=== PATIENT | female | born 1990 | race Caucasian/White ===

== ENCOUNTER 2016-06-29 22:11 | Emergency (ER) | payer OTHER ==
[2016-06-29] MEDS ORDERED: HYDROCODONE/ACETAMINOPHEN 5-325 MG 6 TAB/DSPK PO PRN (23:53)
[2016-06-29] MEDS ORDERED: NAPROXEN 250 MG TABLET PO ONE (23:54)
--- NOTE | 2016-06-29 23:56 | ER Document Report ---
ED General - General Chief Complaint: Wrist Pain Stated Complaint: WRIST PAIN/NUMBNESS Notes: Patient is a 26-year-old female without past medical history who presents with 2 days of right shoulder pain with pain rating down the arm and into her hand. Pain is described as a burning, stabbing, severe pain. No known injury. Denies a history of similar symptoms in the past. Nothing improves or worsens or symptoms. She has not seen her primary care physician regarding today's concerns. States although her hand feels "asleep" she continues to use it without difficulty. TRAVEL OUTSIDE OF THE [place] IN LAST 30 DAYS: No - Related Data Allergies/Adverse Reactions: azithromycin Allergy (Verified 06/29/16 22:25) metoclopramide [From Reglan] Allergy (Verified 06/29/16 22:25) morphine Allergy (Verified 06/29/16 22:25) Past Medical History - General Information source: Patient - Social History Smoking Status: Never Smoker Frequency of alcohol use: None Drug Abuse: None Lives with: Spouse/Significant other Family History: Reviewed & Not Pertinent Patient has suicidal ideation: No Patient has homicidal ideation: No Neurological Medical History: Reports: Hx Migraine Renal/ Medical History: Denies: Hx Peritoneal Dialysis Psychiatric Medical History: Reports: Hx Depression Past Surgical History: Reports: Hx Cholecystectomy, Hx Tubal Ligation - Immunizations Hx Diphtheria, Pertussis, Tetanus Vaccination: Yes Review of Systems - Review of Systems Notes: Constitutional: Negative for fever. HENT: Negative for sore throat. Eyes: Negative for visual changes. Cardiovascular: Negative for chest pain. Respiratory: Negative for shortness of breath. Gastrointestinal: Negative for abdominal pain, vomiting or diarrhea. Genitourinary: Negative for dysuria. Musculoskeletal: Positive for right arm pain Skin: Negative for rash. Neurological: Negative for headaches, weakness or numbness. 10 point ROS negative except as marked above and in HPI. Physical Exam - Vital signs Vitals: Temp Pulse Resp BP Pulse Ox 98.1 F 99 16 130/98 H 100 06/29/16 22:25 06/29/16 22:25 06/29/16 22:25 06/29/16 22:25 06/29/16 22:25 Interpretation: Normal Notes: PHYSICAL EXAMINATION: GENERAL: Well-appearing, well-nourished and in no acute distress. HEAD: Atraumatic, normocephalic. EYES: Pupils equal round and reactive to light, extraocular movements intact, sclera anicteric, conjunctiva are normal. ENT: nares patent, oropharynx clear without exudates. Moist mucous membranes. NECK: Normal range of motion, supple without lymphadenopathy LUNGS: Breath sounds clear to auscultation bilaterally and equal. No wheezes rales or rhonchi. HEART: Regular rate and rhythm without murmurs ABDOMEN: Soft, nontender, normoactive bowel sounds. No guarding, no rebound. No masses appreciated. EXTREMITIES: Normal range of motion, no pitting or edema. No cyanosis. RMU motor and sensory functions intact in the bilateral upper extremities NEUROLOGICAL: Face symmetric. Tongue protrudes midline. Extraocular motions intact. Pupils are 2 mm and equally reactive. Normal speech, normal gait. 5 out of 5 strength in both the distal and proximal upper and lower extremities bilaterally. Sensation is grossly intact throughout. Finger to nose testing normal. Pronator drift normal. PSYCH: Normal mood, normal affect. SKIN: Warm, Dry, normal turgor, no rashes or lesions noted. Course - Re-evaluation Re-evalutation: 06/29/16 23:54 Presentation is consistent with a C6 VII nerve root compression on the right. Patient has paresthesias and pain in her shoulder radiating down to her hand. She has no focal neurologic deficit, full RMU motor and sensory strength is intact. Positive Spurling test. I do not suspect an acute CVA, cervical spine injury, or brachial plexus injury based on exam or history. Patient will be started on to anti-inflammatories. Have instructed her follow closely with her primary care physician.At this time will discharge with return precautions and follow-up recommendations. Verbal discharge instructions given a the bedside and opportunity for questions given. Medication warnings reviewed. Patient is in agreement with this plan and has verbalized understanding of return precautions and the need for primary care follow-up in the next 24-72 hours. - Vital Signs Vital signs: Temp Pulse Resp BP Pulse Ox 98.1 F 94 16 128/74 H 100 06/29/16 22:25 06/30/16 00:23 06/30/16 00:23 06/30/16 00:23 06/30/16 00:23 Discharge - Discharge Clinical Impression: Cervical nerve root impingement Condition: Good Disposition: HOME, SELF-CARE Additional Instructions: Your symptoms are likely due to impingement of one of the peripheral nerves in your cervical spine. This can take months to completely resolve but does eventually get better. You need to take the anti-inflammatories that were prescribed called naproxen 500 mg twice daily. This will help with pain and reduce the inflammation that is causing your discomfort. You have been given a small amount a stronger pain medication called Minda to take at night for sleep. Please return if you have worsening of her pain, weakness, numbness, or any other new symptoms that are worrisome to you. Please follow closely with your primary care doctor in the next 1-2 days. Prescriptions: Naproxen 500 mg PO BID #60 tablet Forms: Return to Work
[2016-06-30 00:33] VITALS: BP 128/74
== END 2016-06-30 00:23 | disposition home or self-care (01) ==
LOC: ER 22:11
DX: M25.531 Pain in right wrist (principal); R20.0 Anesthesia of skin; Z88.3 Allergy status to other anti-infective agents
CPT/HCPCS: 99283

== ENCOUNTER 2016-09-24 10:03 | Emergency (ER) | payer BC, OTHER ==
[2016-09-24] MEDS ORDERED: NORMAL SALINE 1000 ML 1,000 ML IV PRN (10:16)
[2016-09-24] MEDS ORDERED: ONDANSETRON HCL INJ/PF 4 MG/2 ML SDV IV ONE (10:17)
--- NOTE | 2016-09-24 10:19 | ER Document Report ---
Doctor's Note Notes: 09/24/16 10:18 This is a 26-year-old female with a history of herniated disks that presents to the emergency room low back pain, nausea and vomiting. Patient states that the back pain started at work yesterday. She denies any urinary or fecal incontinence. She denies any numbness to the lower extremities. She states that she had vomiting 4 AM this morning. Allergies: Reglan, morphine and azithromycin Past surgical history: Tonsils, cholecystectomy, bilateral tubal ligation
[2016-09-24 10:51] LABS: ABSOLUTE EOSINOPHILS # (AUTO) 0.1 10^3/uL (0.0-0.6); ABSOLUTE MONOCYTES (AUTO) 0.7 10^3/uL (0.1-1.4); ABSOLUTE NEUT (AUTO) 7.7 10^3/uL (1.7-8.2); BASOPHILS % (AUTO) 0.3 % (0-2); EOSINOPHILS % (AUTO) 1.5 % (0-6); HEMATOCRIT 44.6 % (36.0-47.0); HEMOGLOBIN 15.3 g/dL (12.0-15.5); HGB HCT DIFFERENCE 1.3; LYMPHOCYTES % (AUTO) 10.3 % (13-45); MEAN CORPUSCULAR HEMOGLOBIN 28.9 pg (27.0-33.4); MEAN CORPUSCULAR HGB CONC 34.2 g/dL (32.0-36.0); MEAN CORPUSCULAR VOLUME 84 fl (80-97); MONOCYTES % (AUTO) 7.3 % (3-13); RED BLOOD COUNT 5.29 10^6/uL (3.72-5.28); RED CELL DISTRIBUTION WIDTH 13.4 % (11.5-14.0); SEGMENTED NEUTROPHILS % (AUTO) 80.6 % (42-78); WHITE BLOOD COUNT 9.6 10^3/uL (4.0-10.5)
[2016-09-24] MEDS ORDERED: MAG HYDROX/AL HYDROX/SIMETH SUSP 30 ML UDCUP PO ONE (11:16)
[2016-09-24] MEDS ORDERED: LIDOCAINE 2% VISCOUS SOLN 20 ML UDCUP PO ONE (11:16)
--- NOTE | 2016-09-24 11:19 | ER Document Report ---
ED General - General Chief Complaint: Abdominal Pain Stated Complaint: BACK PAIN AND VOMITING Mode of Arrival: Ambulatory Information source: Patient TRAVEL OUTSIDE OF THE [place] IN LAST 30 DAYS: No - Related Data Allergies/Adverse Reactions: azithromycin Allergy (Verified 09/24/16 10:10) metoclopramide [From Reglan] Allergy (Verified 09/24/16 10:10) morphine Allergy (Verified 09/24/16 10:10) Past Medical History - Social History Smoking Status: Never Smoker Frequency of alcohol use: None Drug Abuse: None Family History: Reviewed & Not Pertinent Patient has suicidal ideation: No Patient has homicidal ideation: No Neurological Medical History: Reports: Hx Migraine Renal/ Medical History: Denies: Hx Peritoneal Dialysis Psychiatric Medical History: Reports: Hx Depression Past Surgical History: Reports: Hx Cholecystectomy, Hx Tonsillectomy, Hx Tubal Ligation - Immunizations Hx Diphtheria, Pertussis, Tetanus Vaccination: Yes Physical Exam - Vital signs Vitals: Temp Pulse Resp BP Pulse Ox 98.3 F 103 H 20 123/91 H 99 09/24/16 10:08 09/24/16 10:08 09/24/16 10:08 09/24/16 10:08 09/24/16 10:08 Course - Vital Signs Vital signs: Temp Pulse Resp BP Pulse Ox 98.3 F 103 H 20 123/91 H 99 09/24/16 10:08 09/24/16 10:08 09/24/16 10:08 09/24/16 10:08 09/24/16 10:08 - Laboratory Result Diagrams: 09/24/16 10:27 09/24/16 10:27 Laboratory results interpreted by me: 09/24/16 09/24/16 10:27 11:11 RBC 5.29 H Seg Neutrophils % 80.6 H Lymphocytes % 10.3 L Urine Ketones TRACE H Urine Urobilinogen 2.0 H Ur Leukocyte Esterase SMALL H Discharge - Discharge Clinical Impression: GERD (gastroesophageal reflux disease) Qualifiers: Esophagitis presence: with esophagitis Qualified Code(s): K21.0 - Gastro- esophageal reflux disease with esophagitis Abdominal pain Qualifiers: Abdominal location: left upper quadrant Qualified Code(s): R10.12 - Left upper quadrant pain Condition: Stable Disposition: HOME, SELF-CARE Instructions: Abdominal Pain ([facility]) Prescriptions: Famotidine [Pepcid 20 mg Tablet] 20 mg PO DAILY #30 tablet Referrals: GREGORIO ANDRADE MD [ACTIVE STAFF] - Follow up in 3-5 days
[2016-09-24 11:21] LABS: ALANINE AMINOTRANSFERASE 30 U/L (9-52); ALBUMIN 4.2 g/dL (3.5-5.0); ALKALINE PHOSPHATASE 86 U/L (38-126); ANION GAP 12 (5-19); ASPARTATE AMINO TRANSFERASE 18 U/L (14-36); BILIRUBIN,DIRECT 0.3 mg/dL (0.0-0.4); BILIRUBIN,TOTAL 1.3 mg/dL (0.2-1.3); BLOOD UREA NITROGEN 11 mg/dL (7-20); CALCIUM 9.4 mg/dL (8.4-10.2); CARBON DIOXIDE 24 mmol/L (22-30); CHLORIDE 104 mmol/L (98-107); CREATININE RESULT 0.62 mg/dL (0.52-1.25); GLUCOSE 95 mg/dL (75-110); POTASSIUM 4.2 mmol/L (3.6-5.0); SODIUM 140.4 mmol/L (137-145); TOTAL PROTEIN 7.3 g/dL (6.3-8.2)
[2016-09-24 11:51] LABS: APPEARANCE,URINE SLIGHTLY-CLOUDY; BILIRUBIN,URINE NEGATIVE (NEGATIVE); GLUCOSE, URINE NEGATIVE (NEGATIVE); KETONES,URINE TRACE mg/dL (NEGATIVE); LEUKOCYTE ESTERASE,URINE SMALL (NEGATIVE); NITRITE,URINE NEGATIVE (NEGATIVE); PROTEIN,URINE NEGATIVE (NEGATIVE); URINE SPECIFIC GRAVITY 1.029
[2016-09-24 12:08] VITALS: BP 130/80
== END 2016-09-24 12:10 | disposition home or self-care (01) ==
LOC: ER 10:03
DX: K21.0 Gastro-esophageal reflux disease with esophagitis (principal); R10.12 Left upper quadrant pain; Z88.1 Allergy status to other antibiotic agents; Z88.8 Allergy status to other drugs, medicaments and biological substances; Z88.5 Allergy status to narcotic agent
CPT/HCPCS: 99284; 96361; 96374; 36415; 84702; 83690; 85025; 80053; 81001; J3490; J2405; J7030

== ENCOUNTER 2016-10-29 19:14 | Emergency (ER) | payer BC ==
--- NOTE | 2016-10-29 20:27 | ER Document Report ---
HPI - HPI Patient complains to provider of: Right hip pain for 3-4 days Onset: Other - 3-4 days Onset/Duration: Gradual Quality of pain: Achy Pain Level: 3 Context: 26-year-old obese female complaining of right hip pain for 3-4 days. She does not remember doing anything to invoke the pain. There is no radiculopathy. No low back pain no fever or chills. No history of hip dysplasia. Associated Symptoms: None Exacerbated by: Walking Relieved by: Denies - ROS ROS below otherwise negative: Yes Systems Reviewed and Negative: Yes All other systems reviewed and negative - REPRODUCTIVE LMP: 10/22/16 Reproductive: DENIES: : - DERM Skin Color: Normal, [place] Past Medical History - General Information source: Patient - Social History Smoking Status: Unknown if Ever Smoked Frequency of alcohol use: None Drug Abuse: None Lives with: Family Family History: Reviewed & Not Pertinent Patient has suicidal ideation: No Patient has homicidal ideation: No Neurological Medical History: Reports: Hx Migraine Renal/ Medical History: Denies: Hx Peritoneal Dialysis Psychiatric Medical History: Reports: Hx Depression Past Surgical History: Reports: Hx Cholecystectomy, Hx Tonsillectomy, Hx Tubal Ligation - Immunizations Hx Diphtheria, Pertussis, Tetanus Vaccination: Yes Vertical Provider Document - CONSTITUTIONAL Agree With Documented VS: Yes Exam Limitations: No Limitations General Appearance: No Apparent Distress - INFECTION CONTROL TRAVEL OUTSIDE OF THE [place] IN LAST 30 DAYS: No - HEENT HEENT: Normocephalic - NECK Neck: Supple - RESPIRATORY Respiratory: Breath Sounds Normal, No Respiratory Distress O2 Sat by Pulse Oximetry: 99 - CARDIOVASCULAR Cardiovascular: Regular Rate, Regular Rhythm - GI/ABDOMEN Gastrointestinal: Abdomen Soft, Abdomen Non-Tender - BACK Back: Normal Inspection - Nontender - MUSCULOSKELETAL/EXTREMETIES Musculoskeletal/Extremeties: MAEW, FROM, Tender - anterior hip muscles, no josemanuel tenderness, no pain with internal and external rotation of the hip - NEURO Level of Consciousness: Awake, Alert, Appropriate Motor/Sensory: No Motor Deficit, No Sensory Deficit Course - Vital Signs Vital signs: Temp Pulse Resp BP Pulse Ox 97.6 F 89 16 122/87 H 99 10/29/16 19:21 10/29/16 19:21 10/29/16 19:21 10/29/16 19:21 10/29/16 19:21 Discharge - Discharge Clinical Impression: Strain of right hip Qualifiers: Encounter type: initial encounter Qualified Code(s): S76.011A - Strain of muscle, fascia and tendon of right hip, initial encounter Condition: Good Disposition: HOME, SELF-CARE Instructions: Muscle Strain ([facility]), Warm Packs ([facility]), Use of [id number]-[place]oom Ibuprofen ([facility]), Acetaminophen, Ultram ([facility]) Additional Instructions: see the orthopedic doctor if persists copy of radiology negative interpretation of the xray to er if worse crutches to rest the right hip Please complete the patient satisfaction survey if you get one, and return it.. If you do not receive a survey, then you can go to the [facility] website, [email or web address] and place your comments about your very good care. Thank you very much. It was a pleasure being your medical provider today. Prescriptions: Tramadol HCl [Ultram 50 mg Tablet] 50 mg PO ASDIR PRN #20 tablet PRN Reason: Forms: Return to Work Referrals: MARGOT STEPHENS, [ACTIVE STAFF] - Follow up as needed
[2016-10-29] MEDS ORDERED: ACETAMINOPHEN 325 MG TABLET PO ONE (20:36)
[2016-10-29] MEDS ORDERED: IBUPROFEN 800 MG TABLET PO ONE (20:36)
--- NOTE | 2016-10-29 21:25 | RADIOLOGY REPORT (SQ) ---
EXAM DESCRIPTION: HIP RIGHT AP/LATERAL COMPLETED DATE/TIME: 10/29/2016 9:17 pm REASON FOR STUDY: pin in hip joint COMPARISON: None. NUMBER OF VIEWS: Two views right hip. LIMITATIONS: None. FINDINGS: There is no acute or significant bone, joint or soft tissue abnormality. OTHER: Normal bone density. IMPRESSION: NORMAL STUDY. TECHNICAL DOCUMENTATION: JOB ID: [id number]
[2016-10-29] MEDS ORDERED: TRAMADOL HCL 50 MG TABLET PO ONE (21:56)
[2016-10-29 22:41] VITALS: BP 129/89
== END 2016-10-29 22:41 | disposition home or self-care (01) ==
LOC: ER 19:14
DX: S76.011A Strain of muscle, fascia and tendon of right hip, initial encounter (principal); M25.511 Pain in right shoulder; X58.XXXA Exposure to other specified factors, initial encounter
CPT/HCPCS: 99283

== ENCOUNTER 2017-05-08 18:57 | Emergency (ER) | payer SELFPAY ==
--- NOTE | 2017-05-08 20:11 | ER Document Report ---
ED ENT - General Chief Complaint: Ear Pain Stated Complaint: FEVER,EAR PAIN Time Seen by Provider: 05/08/17 19:54 Mode of Arrival: Ambulatory Information source: Patient Notes: 26-year-old female presents to ED for cough cold congestion body aches and chills for the last 2 days. She states she started out with a right ear pain 3 days ago. States yesterday her temperature was 100.1. TRAVEL OUTSIDE OF THE [place] IN LAST 30 DAYS: No - HPI Patient complains to provider of: Nose problem, Throat problem Onset: Other Onset/Duration: Intermittent - 3 days Quality of pain: Other - Sore throat Severity: Moderate Pain Level: 3 Context: Recent Illness Location of pain: Nose, Sinus, Throat Associated symptoms: Ear pain, Runny nose, Sinus drainage, Sore throat Similar symptoms previously: Yes Recently seen / treated by doctor: No - Related Data Allergies/Adverse Reactions: azithromycin Allergy (Verified 05/08/17 18:58) metoclopramide [From Reglan] Allergy (Verified 05/08/17 18:58) morphine Allergy (Verified 05/08/17 18:58) Past Medical History - General Information source: Patient - Social History Smoking Status: Former Smoker Cigarette use (# per day): No Chew tobacco use (# tins/day): No Smoking Education Provided: No Frequency of alcohol use: None Drug Abuse: None Lives with: Family Family History: Reviewed & Not Pertinent Patient has suicidal ideation: No Patient has homicidal ideation: No - Past Medical History Cardiac Medical History: Reports: Hx Hypertension Pulmonary Medical History: Reports: None EENT Medical History: Reports: None Neurological Medical History: Reports: Hx Migraine Endocrine Medical History: Reports: None Renal/ Medical History: Reports: None Malignancy Medical History: Reports: None GI Medical History: Reports: None Musculoskeltal Medical History: Reports None Skin Medical History: Reports None Psychiatric Medical History: Reports: Hx Depression Traumatic Medical History: Reports: None Infectious Medical History: Reports: None Past Surgical History: Reports: Hx Cholecystectomy, Hx Tonsillectomy, Hx Tubal Ligation - Immunizations Hx Diphtheria, Pertussis, Tetanus Vaccination: Yes Review of Systems - Review of Systems Constitutional: Chills, Fever, Recent illness EENT: Ear pain, Nose discharge, Sinus discharge Cardiovascular: No symptoms reported Respiratory: No symptoms reported Gastrointestinal: No symptoms reported Genitourinary: No symptoms reported Female Genitourinary: No symptoms reported Musculoskeletal: No symptoms reported Skin: No symptoms reported Hematologic/Lymphatic: No symptoms reported Neurological/Psychological: No symptoms reported -: Yes All other systems reviewed and negative Physical Exam - Vital signs Vitals: Temp Pulse Resp BP Pulse Ox 99.2 F 121 H 20 128/89 H 97 05/08/17 19:30 05/08/17 19:30 05/08/17 19:30 05/08/17 19:30 05/08/17 19:30 Interpretation: Tachycardic - 108 - General General appearance: Appears well, Alert - HEENT Head: Normocephalic, Atraumatic Eyes: Normal Pupils: PERRL Ears: Normal External canal: Normal Tympanic membrane: Bulging, Injected, Loss of landmarks Sinus: Normal Nasal: Purulent discharge, Swelling Mouth/Lips: Normal Mucous membranes: Normal Pharynx: Post nasal drainage Neck: Anterior cervical chain - Respiratory Respiratory status: No respiratory distress Chest status: Nontender Breath sounds: Normal Chest palpation: Normal - Cardiovascular Rhythm: Regular Heart sounds: Normal auscultation Murmur: No - Abdominal Inspection: Normal Distension: No distension Bowel sounds: Normal Tenderness: Nontender Organomegaly: No organomegaly - Back Back: Normal, Nontender - Extremities General upper extremity: Normal inspection, Nontender, Normal color, Normal ROM , Normal temperature General lower extremity: Normal inspection, Nontender, Normal color, Normal ROM , Normal temperature, Normal weight bearing. No: Dell's sign - Neurological Neuro grossly intact: Yes Cognition: Normal Orientation: AAOx4 Reba Coma Scale Eye Opening: Spontaneous Reba Coma Scale Verbal: Oriented [place] Coma Scale Motor: Obeys Commands [place] Coma Scale Total: 15 Speech: Normal Motor strength normal: LUE, RUE, LLE, RLE Sensory: Normal - Psychological Associated symptoms: Normal affect, Normal mood - Skin Skin Temperature: Warm Skin Moisture: Dry Skin Color: Normal Course - Re-evaluation Re-evalutation: 05/08/17 20:38 Patient encouraged to increase her p.o. fluids. Patient started on amoxicillin for her otitis media on the right. Patient also has a cold cough congestion instructed to follow-up with her primary doctor. - Vital Signs Vital signs: Temp Pulse Resp BP Pulse Ox 99.1 F 100 18 127/85 H 99 05/08/17 20:19 05/08/17 20:19 05/08/17 20:19 05/08/17 20:19 05/08/17 20:19 Discharge - Discharge Clinical Impression: Otitis media Qualifiers: Otitis media type: unspecified Laterality: right Qualified Code(s): H66.91 - Otitis media, unspecified, right ear URI (upper respiratory infection) Qualifiers: URI type: unspecified URI Qualified Code(s): J06.9 - Acute upper respiratory infection, unspecified Condition: Stable Disposition: HOME, SELF-CARE Additional Instructions: OTITIS MEDIA: You have a middle ear infection (otitis media). This is usually a complication of a cold or sore throat. The middle ear cavity becomes filled with infection. Pressure and stretching of the ear drum cause pain. Antibiotics are required. A 10 day course is usually prescribed. A decongestant may be recommended if you have a "runny nose." You may need anesthetic drops or other pain medication. A follow-up exam may be recommended to make sure the infection has completely cleared. If the ear begins to drain, it means the ear drum has ruptured. This will usually heal spontaneously. However, it means you should keep the ear dry until re-examined by a doctor. Call the physician or return for examination at once if there is severe headache, stiff neck, confusion, increasing fever, or dizziness. You should improve significantly within two days. If you're not better, call the doctor. AMOXICILLIN: Amoxicillin is a member of the penicillin family. It covers the germs likely to cause ear, bronchial, and urinary infections better than plain penicillin. Amoxicillin can be taken without regard to meals. Nausea after taking the medication is rare, but can occur. Diarrhea can occur, particularly in small children. Vaginal yeast infections and oral thrush in infants are also common. Contact your physician if these problems occur. Allergy to penicillins is common. If you have had an allergic reaction to any drug of the penicillin family, you should never take any other penicillin. Notify your doctor at once if you develop hives, itching, swelling, faintness, or shortness of breath. Less serious side effects can include nausea or diarrhea. USE OF ACETAMINOPHEN (Tylenol): Acetaminophen may be taken for pain relief or fever control. It's much safer than aspirin, offering a wider range of "safe" dosages. It is safe during . Some brand names are Tylenol, Panadol, Datril, Anacin 3, Tempra, and Liquiprin. Acetaminophen can be repeated every four hours. The following are maximum recommended dosages: WEIGHT Dose Drops Elixir Chewable( 80mg) (LBS.) drprs=droppers tsp=teaspoon 6 40 mg 0.4 ml (1/2) 6-11 80 mg 0.8 ml (full) tsp 1 tab 12-16 120 mg 1 1/2 drprs 3/4 tsp 1 1/2 tabs 17-23 160 mg 2 drprs 1 tsp 2 tabs 24-30 240 mg 3 drprs 1 1/2 tsp 3 tabs 30-35 320 mg 2 tsp 4 tabs 36-41 360 mg 2 1/4 tsp 4 1/2 tabs 42-47 400 mg 2 1/2 tsp 5 tabs 48-53 480 mg 3 tsp 6 tabs 54-59 520 mg 3 1/4 tsp 6 1/2 tabs 60-64 560 mg 3 1/2 tsp 7 tabs 65-70 600 mg 3 3/4 tsp 7 1/2 tabs 71-76 640 mg 4 tsp 8 tabs 77-82 720 mg 4 1/2 tsp 9 tabs 83-88 800 mg 5 tsp 10 tabs >89 pounds or adults 650 mg to 900 mg Acetaminophen can be repeated every four hours. Maximum dose not to exceed 4000 mg a day. These maximum recommended dosages are slightly higher than the dosages written on the product container, but these dosages are very safe and below the toxic dosage for acetaminophen. FOLLOW-UP CARE: If you have been referred to a physician for follow-up care, call the physician s office for an appointment as you were instructed or within the next two days. If you experience worsening or a significant change in your symptoms, notify the physician immediately or return to the Emergency Department at any time for re-evaluation. Prescriptions: Ibuprofen 800 mg PO Q8HP PRN #14 tablet PRN Reason: Amoxicillin Trihydrate [Amoxil 875 mg Tablet] 1 tab PO BID #20 tablet Forms: Elevated Blood Pressure
[2017-05-08 20:23] VITALS: BP 127/85
== END 2017-05-08 20:16 | disposition home or self-care (01) ==
LOC: ER 18:57
DX: J06.9 Acute upper respiratory infection, unspecified (principal); H66.91 Otitis media, unspecified, right ear; R05 Cough; R09.81 Nasal congestion; M79.1 Myalgia; R50.9 Fever, unspecified; Z87.891 Personal history of nicotine dependence
CPT/HCPCS: 99282

== ENCOUNTER 2017-05-20 17:29 | Emergency (ER) | payer SELFPAY ==
[2017-05-20] MEDS ORDERED: ONDANSETRON HCL INJ/PF 4 MG/2 ML SDV IV ONE (19:43)
[2017-05-20] MEDS ORDERED: NORMAL SALINE 1000 ML 1,000 ML IV ONE (19:48)
--- NOTE | 2017-05-20 19:48 | ER Document Report ---
ED General - General Chief Complaint: Nausea/Vomiting/Diarrhea Stated Complaint: NAUSEA, VOMITING, DIARRHEA Time Seen by Provider: 05/20/17 19:14 TRAVEL OUTSIDE OF THE [place] IN LAST 30 DAYS: No - HPI Notes: Patient is a 26-year-old female with a history of tubal ligation, cholecystectomy, chronic back pain, tonsillectomy who presents the ED complaining of right-sided abdominal pain, nausea/vomiting that began this morning. Patient states that on occasion she can feel the abdominal pain radiate towards the center. Walking makes her abdominal pain worse as well as sitting up. Laying down and not moving helps. Patient has not been able to keep any food or fluids down today. She is urinating normally. Patient has associated diarrhea as well. Patient did eat a salad about 2 hours prior to development of the symptoms, but states that she made it herself and did not bite at a store. Patient states that most of her right-sided abdominal pain is in the right lower quadrant. Patient states that she still does have her appendix. Denies any headache, fever, neck pain, URI, sore throat, chest pain, palpitations, syncope, cough, shortness of breath, wheeze, dyspnea, urinary retention, dysuria, hematuria, vaginal discharge/odor/bleeding, loss of control of bowel or bladder, numbness/tingling, saddle anesthesia, muscle paralysis/ weakness, or rash. - Related Data Allergies/Adverse Reactions: azithromycin Allergy (Verified 05/20/17 17:33) metoclopramide [From Reglan] Allergy (Verified 05/20/17 17:33) morphine Allergy (Verified 05/20/17 17:33) Past Medical History - Social History Smoking Status: Never Smoker Family History: Reviewed & Not Pertinent - Past Medical History Cardiac Medical History: Reports: Hx Hypertension Neurological Medical History: Reports: Hx Migraine Renal/ Medical History: Denies: Hx Peritoneal Dialysis Psychiatric Medical History: Reports: Hx Depression Past Surgical History: Reports: Hx Cholecystectomy, Hx Tonsillectomy, Hx Tubal Ligation - Immunizations Hx Diphtheria, Pertussis, Tetanus Vaccination: Yes Review of Systems - Review of Systems Notes: REVIEW OF SYSTEMS: CONSTITUTIONAL : Denies fever, chills, or sweats. Denies recent illness. EENT: Denies eye, ear, throat, or mouth pain or symptoms. Denies nasal or sinus congestion or discharge. Denies throat, tongue, or mouth swelling or difficulty swallowing. CARDIOVASCULAR: Denies chest pain. Denies palpitations or racing or irregular heart beat. Denies ankle edema. RESPIRATORY: Denies cough, cold, or chest congestion. Denies shortness of breath, difficulty breathing, or wheezing. GASTROINTESTINAL: see hpi. no melena, hematochezia, hematemesis. GENITOURINARY: Denies difficulty urinating, painful urination, burning, frequency, blood in urine, or discharge. FEMALE GENITOURINARY: Denies vaginal bleeding, heavy or abnormal periods, irregular periods. Denies vaginal discharge or odor. MUSCULOSKELETAL: Denies back or neck pain or stiffness. Denies joint pain or swelling. SKIN: Denies rash, lesions or sores. NEUROLOGICAL: Denies passing out or loss of consciousness. Denies dizziness or lightheadedness. Denies headache. Denies weakness or paralysis or loss of use of either side. Denies problems with gait or speech. Denies sensory loss, numbness, or tingling. Denies seizures. ALL OTHER SYSTEMS REVIEWED AND NEGATIVE. Dictation was performed using [email or web address] voice recognition software Physical Exam - Vital signs Vitals: Temp Pulse Resp BP Pulse Ox 98.9 F 109 H 20 134/95 H 99 05/20/17 18:23 05/20/17 18:23 05/20/17 18:23 05/20/17 18:23 05/20/17 18:23 Notes: PHYSICAL EXAMINATION: GENERAL: Well-appearing, well-nourished and in no acute distress. A&Ox4 HEAD: Atraumatic, normocephalic. EYES: Pupils equal round and reactive to light, extraocular movements intact, sclera anicteric, conjunctiva are normal. ENT: EAC clear b/l. TM's intact b/l without erythema, fluid, or perforation. Nares patent and without discharge. oropharynx clear without exudates. Tonsils absent. Moist mucous membranes. No sinus tenderness. NECK: Normal range of motion, supple without lymphadenopathy LUNGS: Breath sounds clear to auscultation bilaterally and equal. No wheezes rales or rhonchi. HEART: Regular rate and rhythm without murmurs, rubs, gallops. ABDOMEN: Soft, nondistended abdomen. No rebound. No masses appreciated. Normal bowel sounds present. No CVA tenderness bilaterally. + tenderness to palp of the RLQ with minimal guarding to that location. Musculoskeletal: FROM to passive/active. Strength 5+/5. N/V intact. No focal deficits. Extremities: No cyanosis, clubbing, or edema b/l. Peripheral pulses 2+. Capillary refill less than 3 seconds. NEUROLOGICAL: Cranial nerves grossly intact. Normal speech, normal gait. Normal sensory, motor exams PSYCH: Normal mood, normal affect. SKIN: Warm, Dry, normal turgor, no rashes or lesions noted. Course - Re-evaluation Re-evalutation: 05/20/17 21:38 Patient is an afebrile, well-hydrated, 26-year-old female who presents to the ED with nausea/vomiting and abdominal pain not otherwise specified, suspect gastroenteritis. Vitals are stable. PE is otherwise unremarkable. CBC showed an elevated white count with left shift, CMP was unremarkable as well as her lipase and influenza. Pt has no urinary symptoms currently and I suspect the UA is contaminate findings, culture pending. Pt is tolerating PO w/o difficulty. Pt was given 0.5mg dilaudid during her visit. Reviewed case with Dr. Johnson who is in agreement with discharge/plan. Low suspicion/risk for acute appendicitis, bowel obstruction, acute cholecystitis, acute cholangitis, perforated diverticulitis, incarcerated hernia, pancreatitis, perforated ulcer, peritonitis, sepsis, pelvic inflammatory disease, ectopic , tubo- ovarian abscess, ovarian torsion, or other systemic emergent condition at this time. Patient is aware that her condition can change from initial presentation and she needs to monitor symptoms closely and seek medical attention if any acute changes. I will send her home with a prescription for Zofran to take as directed. Conservative measures otherwise for symptoms. Recheck with your PCM in 2 days. Consider consult with a community engagement representative. Return to the ED with any worsening/concerning symptoms otherwise as reviewed in discharge. Patient is in agreement. - Vital Signs Vital signs: Temp Pulse Resp BP Pulse Ox 98.9 F 109 H 20 134/95 H 99 05/20/17 18:23 05/20/17 18:23 05/20/17 18:23 05/20/17 18:23 05/20/17 18:23 - Laboratory Result Diagrams: 05/20/17 19:40 05/20/17 19:40 Laboratory results interpreted by me: 05/20/17 05/20/17 19:40 19:40 WBC 17.7 H Seg Neutrophils % 89.5 H Lymphocytes % 7.4 L Monocytes % 2.7 L Absolute Neutrophils 15.8 H Urine Ketones 80 H Ur Leukocyte Esterase SMALL H Discharge - Discharge Clinical Impression: Nonspecific abdominal pain Condition: Stable Disposition: HOME, SELF-CARE Instructions: Abdominal Pain ([facility]), Antinausea Medication ([facility]), Diarrhea, Nonspecific ([facility]), Observation for Appendicitis ([facility]), Vomiting ([facility]) Additional Instructions: Maintain adequate fluid and food intake Burke diet ([employer] Bananas, rice, apples, toast, etc Zofran as needed tylenol if needed Monitor for any worsening symptoms very closely over the next 12-24 hours and return with any worsening symptoms* Make sure you are staying hydrated enough to urinate and have normal BM's Recheck with your PCM in 2 days* Consider consult with Gastroenterology for ongoing/worsening symptoms Return to the ED with any worsening symptoms and/or development of fever, headache, chest pain, palpitations, syncope, shortness of breath, trouble breathing, abdominal pain, n/v/d, blood in stool/urine, weakness, or other worsening symptoms that are concerning to you. Prescriptions: Ondansetron [Zofran Odt 4 mg Tablet] 1 - 2 tab PO Q4H PRN #15 tab.rapdis PRN Reason: For Nausea/Vomiting Forms: Elevated Blood Pressure Referrals: [facility] [Provider Group] - Follow up as needed [facility] [Provider Group] - Follow up as needed ROJELIO WHITE MD [ACTIVE STAFF] - Follow up as needed
[2017-05-20 19:59] LABS: ABSOLUTE LYMPHOCYTES (AUTO) 1.3 10^3/uL (0.5-4.7); ABSOLUTE MONOCYTES (AUTO) 0.5 10^3/uL (0.1-1.4); ABSOLUTE NEUT (AUTO) 15.8 10^3/uL (1.7-8.2); BASOPHILS % (AUTO) 0.1 % (0-2); EOSINOPHILS % (AUTO) 0.3 % (0-6); HEMOGLOBIN 15.3 g/dL (12.0-15.5); LYMPHOCYTES % (AUTO) 7.4 % (13-45); MEAN CORPUSCULAR HGB CONC 34.7 g/dL (32.0-36.0); MEAN CORPUSCULAR VOLUME 83 fl (80-97); MONOCYTES % (AUTO) 2.7 % (3-13); PLATELET COUNT 292 10^3/uL (150-450); RED BLOOD COUNT 5.27 10^6/uL (3.72-5.28); RED CELL DISTRIBUTION WIDTH 13.3 % (11.5-14.0); SEGMENTED NEUTROPHILS % (AUTO) 89.5 % (42-78); TOTAL CELLS COUNTED % (AUTO) 100 %; WHITE BLOOD COUNT 17.7 10^3/uL (4.0-10.5)
[2017-05-20 20:09] LABS: A TYPE INFLUENZA AG NEGATIVE (NEGATIVE); B INFLUENZA AG NEGATIVE (NEGATIVE)
[2017-05-20] MEDS ORDERED: HYDROMORPHONE HCL INJ/PF 2 MG/ML AMPULE IV ONE (20:16)
[2017-05-20 20:18] LABS: AMORPHOUS SEDIMENT,URINE TRACE /HPF; APPEARANCE,URINE SLIGHTLY-CLOUDY; BILIRUBIN,URINE NEGATIVE (NEGATIVE); COLOR,URINE YELLOW; GLUCOSE, URINE NEGATIVE (NEGATIVE); KETONES,URINE 80 mg/dL (NEGATIVE); LEUKOCYTE ESTERASE,URINE SMALL (NEGATIVE); NITRITE,URINE NEGATIVE (NEGATIVE); PROTEIN,URINE NEGATIVE (NEGATIVE); URINE SPECIFIC GRAVITY 1.024; UROBILINOGEN,URINE NEGATIVE mg/dL (<2.0)
[2017-05-20 20:20] LABS: ALANINE AMINOTRANSFERASE 26 U/L (9-52); ALBUMIN 4.3 g/dL (3.5-5.0); ALKALINE PHOSPHATASE 75 U/L (38-126); ANION GAP 11 (5-19); ASPARTATE AMINO TRANSFERASE 32 U/L (14-36); BILIRUBIN,DIRECT 0.2 mg/dL (0.0-0.4); BILIRUBIN,TOTAL 1.1 mg/dL (0.2-1.3); BLOOD UREA NITROGEN 11 mg/dL (7-20); CALCIUM 9.6 mg/dL (8.4-10.2); CARBON DIOXIDE 24 mmol/L (22-30); CHLORIDE 107 mmol/L (98-107); GLUCOSE 96 mg/dL (75-110); LIPASE 31.8 U/L (23-300); SODIUM 141.7 mmol/L (137-145); TOTAL PROTEIN 7.9 g/dL (6.3-8.2)
--- NOTE | 2017-05-20 21:35 | RADIOLOGY REPORT (SQ) ---
EXAM DESCRIPTION: CT ABD/PELVIS WITH IV ONLY COMPLETED DATE/TIME: 05/20/2017 9:18 pm REASON FOR STUDY: RLQ pain COMPARISON: None. TECHNIQUE: CT scan of the abdomen and pelvis performed using helical scanning technique with dynamic intravenous contrast injection. No oral contrast. Images reviewed with lung, soft tissue, and bone windows. Reconstructed coronal and sagittal MPR images reviewed. Delayed images for evaluation of the urinary system also acquired. All images stored on PACS. All CT scanners at this facility use dose modulation, iterative reconstruction, and/or weight based d osing when appropriate to reduce radiation dose to as low as reasonably achievable (ALARA). [facility]: Dose Right [facility]: CareDose [facility]: Dose Right [facility]: Teradose 4D [facility]: BitStash CONTRAST TYPE AND DOSE: contrast/concentration: Isovue 370.00 mg/ml; Total Contrast Delivered: 100.0 ml; Total Saline Delivered: 72.0 ml RENAL FUNCTION: Creatinine 0.63 RADIATION DOSE: CT Rad equipment meets quality standard of care and radiation dose reduction techniq ues were employed. CTDIvol: 21.0 - 21.1 mGy. DLP: 2397 mGy-cm.. LIMITATIONS: None. FINDINGS: LOWER CHEST: No significant findings. No nodules or infiltrates. LIVER: Normal size. No masses. No dilated ducts. SPLEEN: Normal size. No focal lesions. PANCREAS: No masses. No significant calcifications. No adjacent inflammation or peripancreatic fluid collections. Pancreatic duct not dilated. GALLBLADDER: Status post cholecystectomy ADRENAL GLANDS: No significant masses or asymmetry. RIGHT KIDNEY AND URETER: No solid masses. No significant calcifications. No hydronephrosis or hyd roureter. LEFT KIDNEY AND URETER: No solid masses. No significant calcifications. No hydronephrosis or hydr oureter. AORTA AND VESSELS: No aneurysm. No dissection. Renal arteries, SMA, celiac without stenosis. RETROPERITONEUM: No retroperitoneal adenopathy, hemorrhage or masses. BOWEL AND PERITONEAL CAVITY: No masses or inflammatory changes. No free fluid or peritoneal masses. APPENDIX: Normal. PELVIS: No mass. No free fluid. Normal bladder. ABDOMINAL WALL: No masses. No hernias. BONES: No significant or acute findings. OTHER: No other significant finding. IMPRESSION: NO SIGNIFICANT OR ACUTE FINDING IN THE ABDOMEN OR PELVIS ON CT SCAN WITH IV CONTRAST. TECHNICAL DOCUMENTATION: JOB ID: [id number] Quality ID # [id number]: Final reports with documentation of one or more dose reduction techniques (e.g., Au tomated exposure control, adjustment of the mA and/or kV according to patient size, use of iterative reconstruction technique) 2010 [employer]- All Rights Reserved
[2017-05-20] MEDS ORDERED: ONDANSETRON ODT 4 MG TAB (6 TAB/ER DISP) PO PRN (21:52)
[2017-05-20 22:02] VITALS: BP 136/82
== END 2017-05-20 22:02 | disposition home or self-care (01) ==
LOC: ER 17:29
DX: R10.31 Right lower quadrant pain (principal); R11.2 Nausea with vomiting, unspecified; R19.7 Diarrhea, unspecified
CPT/HCPCS: 99284; 96361; 96374; 96375; 36415; 87086; 83690; 85025; 81025; 80053; 81001; 87804; 74177; J1170; J2405; J7030

== ENCOUNTER 2017-08-26 08:33 | Emergency (ER) | payer OTHER ==
--- NOTE | 2017-08-26 08:52 | ER Document Report ---
HPI - HPI Patient complains to provider of: low back pain and hives Onset: Other - the back started hurting yesterday, hives on and off for months Pain Level: 5 Context: 27 yo female with low back pain since yesterday morning. Al the way across. No urinary symptoms. No saddle anesthesia, no radiculopathy. NO fever or chills. NO IV drugs. Also wants to know why the hives keep recurring intermittently for several months. Benadryl helps. Associated Symptoms: None Exacerbated by: Denies Relieved by: Denies - ROS ROS below otherwise negative: Yes Systems Reviewed and Negative: Yes All other systems reviewed and negative - REPRODUCTIVE Reproductive: DENIES: : Past Medical History - General Information source: Patient - Social History Smoking Status: Never Smoker Frequency of alcohol use: None Drug Abuse: None Lives with: Family Family History: Reviewed & Not Pertinent - Past Medical History Cardiac Medical History: Reports: Hx Hypertension Neurological Medical History: Reports: Hx Migraine Renal/ Medical History: Denies: Hx Peritoneal Dialysis Psychiatric Medical History: Reports: Hx Depression Past Surgical History: Reports: Hx Cholecystectomy, Hx Tonsillectomy, Hx Tubal Ligation - Immunizations Hx Diphtheria, Pertussis, Tetanus Vaccination: Yes Vertical Provider Document - CONSTITUTIONAL Agree With Documented VS: Yes Exam Limitations: No Limitations General Appearance: No Apparent Distress - INFECTION CONTROL TRAVEL OUTSIDE OF THE [place] IN LAST 30 DAYS: No - HEENT HEENT: Normocephalic - NECK Neck: Supple - RESPIRATORY Respiratory: Breath Sounds Normal, No Respiratory Distress - CARDIOVASCULAR Cardiovascular: Regular Rate, Regular Rhythm - GI/ABDOMEN Gastrointestinal: Abdomen Soft, Abdomen Non-Tender - BACK Back: Normal Inspection. negative: CVA Tenderness-Right, CVA Tenderness-Left - MUSCULOSKELETAL/EXTREMETIES Musculoskeletal/Extremeties: MAEW, Tender - lumbar muscles, Eccymosis - NEURO Level of Consciousness: Awake, Alert Motor/Sensory: No Motor Deficit, No Sensory Deficit Deep Tendon Reflexes: 2+ - harriett ankle and patellar - DERM Integumentary: No Rash Course - Vital Signs Vital signs: Temp Pulse Resp BP Pulse Ox 98.0 F 86 16 127/74 H 98 08/26/17 08:46 08/26/17 08:46 08/26/17 08:46 08/26/17 08:46 08/26/17 08:46 Discharge - Discharge Clinical Impression: chronic Urticaria, low back strain Condition: Good Disposition: HOME, SELF-CARE Instructions: Acetaminophen, Acute Urticaria ([facility]), Anti-Inflammatory Medication ([facility]), Low Back Pain ([facility]), Muscle Strain ([facility]), Warm Packs ([facility]) Additional Instructions: warm compress motrin tylenol see the manager trade marketing for the chronic hives continue the benadryl for the hives See your primary care provider if your back pain persists return to the emergency room for worsening symptoms Prescriptions: Ibuprofen [Motrin 800 mg Tablet] 800 mg PO Q8HP PRN #30 tablet PRN Reason: Cyclobenzaprine HCl [Flexeril 10 Mg Tablet] 10 mg PO TIDP PRN #20 tablet PRN Reason: Forms: Return to Work Referrals: CORTNEY REYNA DO [ACTIVE STAFF] - Follow up as needed
[2017-08-26] MEDS ORDERED: ACETAMINOPHEN 325 MG TABLET PO ONE (09:25)
[2017-08-26] MEDS ORDERED: IBUPROFEN 800 MG TABLET PO ONE (09:25)
[2017-08-26 09:57] VITALS: BP 126/84
== END 2017-08-26 10:00 | disposition home or self-care (01) ==
LOC: ER 08:33
DX: S39.012A Strain of muscle, fascia and tendon of lower back, initial encounter (principal); X58.XXXA Exposure to other specified factors, initial encounter; L50.8 Other urticaria; I10 Essential (primary) hypertension
CPT/HCPCS: 99283

== ENCOUNTER 2017-10-27 20:43 | Emergency (ER) | payer SELFPAY ==
[2017-10-27 20:55] VITALS: BP 132/93
--- NOTE | 2017-10-27 22:39 | RADIOLOGY REPORT (SQ) ---
EXAM DESCRIPTION: XR WRIST 3 OR MORE VIEWS RIGHT CLINICAL HISTORY: 27 years Female, injury pain COMPARISON: None. Findings: Bones, joints, and soft tissues of the XR WRIST 3 VIEWS RIGHT appear intact. IMPRESSION: No acute findings.
--- NOTE | 2017-10-27 22:40 | RADIOLOGY REPORT (SQ) ---
EXAM DESCRIPTION: XR ELBOW 3 VIEWS CLINICAL HISTORY: 27 years Female, injury pain COMPARISON: None. Findings: Bones, joints, and soft tissues of the XR RIGHT ELBOW 4 VIEWS appear intact. IMPRESSION: No acute findings.
[2017-10-27] MEDS ORDERED: ACETAMINOPHEN 325 MG TABLET PO ONE (22:58)
--- NOTE | 2017-10-27 22:59 | ER Document Report ---
HPI - HPI Pain Level: 3 Context: Patient is a left-hand dominant 27-year-old female who presents emergency part with a chief complaint of right wrist pain for the past 4 months. Patient states that she has had wrist pain worse at night and worse in the mornings on the anterior surface of her right wrist with associated numbness and tingling in her third fourth and fifth digits. She states she also has intermittent discomfort whenever she hits her elbow on a surface causing associated radiation into her wrist and into those fingers. States that she has not followed up with her primary care provider regarding this. States that she is taking Aleve intermittently without any significant improvement in her pain.She denies any redness, swelling of the extremity. - REPRODUCTIVE Reproductive: DENIES: : - MUSCULOSKELETAL Musculoskeletal: REPORTS: Extremity pain - RUE Past Medical History - Social History Smoking Status: Unknown if Ever Smoked Family History: Reviewed & Not Pertinent Patient has suicidal ideation: No Patient has homicidal ideation: No - Past Medical History Cardiac Medical History: Reports: Hx Hypertension Neurological Medical History: Reports: Hx Migraine Renal/ Medical History: Denies: Hx Peritoneal Dialysis Psychiatric Medical History: Reports: Hx Depression Past Surgical History: Reports: Hx Cholecystectomy, Hx Tonsillectomy, Hx Tubal Ligation - Immunizations Hx Diphtheria, Pertussis, Tetanus Vaccination: Yes Vertical Provider Document - CONSTITUTIONAL Agree With Documented VS: Yes Notes: PHYSICAL EXAM GENERAL: Alert, interacts well. EXTREMITIES: Moves all 4 extremities spontaneously. Structured Cabling Technician strength 5 out of 5 in the left hand without any tenderness in the wrist or along the forearm. Patient with tenderness over the right carpal tunnel with positive Tinel sign, we can vest front presser strength. Full range of motion without any evidence of underlying deformity. No edema, radial and dorsalis pedis pulses 2/4 bilaterally. No cyanosis. NEUROLOGICAL: Alert and oriented x4. Normal speech. PSYCH: Normal affect, normal mood. SKIN: Warm, dry, normal turgor. No rashes or lesions noted. - INFECTION CONTROL TRAVEL OUTSIDE OF THE [place] IN LAST 30 DAYS: No Course - Re-evaluation Re-evalutation: 10/27/17 22:58 Patient is a 27-year-old female who presents to the emergency room with symptoms consistent with carpal tunnel syndrome. Patient's upper extremity without any focal neurological deficits concerning for underlying cephalgia, concerns for DVT. X-rays without any evidence of underlying fracture. Patient offered and accepted a cock-up splint and educated her on following up with primary care. Patient agrees with plan and stable for discharge home - Vital Signs Vital signs: Temp Pulse Resp BP Pulse Ox 98.2 F 93 18 132/93 H 97 10/27/17 20:51 10/27/17 20:51 10/27/17 20:51 10/27/17 20:51 10/27/17 20:51 - Diagnostic Test Radiology reviewed: Image reviewed, Reports reviewed Discharge - Discharge Clinical Impression: Carpal tunnel syndrome Qualifiers: Laterality: right Qualified Code(s): G56.01 - Carpal tunnel syndrome, right upper limb Condition: Good Disposition: HOME, SELF-CARE Instructions: Carpal Tunnel Syndrome ([facility]) Forms: Elevated Blood Pressure Referrals: MARGOT STEPHENS DO [ACTIVE STAFF] - Follow up as needed (ortho) DIEGO GILLIS DO [NO LOCAL MD] - Follow up in 1 month (primary care)
== END 2017-10-27 23:07 | disposition home or self-care (01) ==
LOC: ER 20:43
DX: G56.01 Carpal tunnel syndrome, right upper limb (principal); M25.531 Pain in right wrist; I10 Essential (primary) hypertension
CPT/HCPCS: 99283; 73080; 73110; L3908

== ENCOUNTER 2017-11-25 23:34 | Emergency (ER) | payer OTHER ==
[2017-11-26] MEDS ORDERED: KETOROLAC TROMETHAMINE INJ/PF 30 MG/1 ML SDV IM ONE (00:03)
--- NOTE | 2017-11-26 00:24 | ER Document Report ---
ED General - General Chief Complaint: Headache Stated Complaint: RIGHT SIDE PAIN Time Seen by Provider: 11/25/17 23:56 Notes: Patient is a 27-year-old female presents with 2 different complaints. First complaint is of pain going from her right hip down her right leg. She also has an area of a spider vein just below her right knee that has been there for a while that she says is intermittent painful. She says it is painful today. She denies any fevers. No vomiting. She denies any focal weakness or numbness into the leg. No loss of bowel control. No urinary retention. She says any movement of the leg does make the pain worse. No history of DVT or PE. No surgeries in the last 6 months. Patient second complaint is of a headache. She does have history of migraines and complex migraines. He states that this headache is over the right side of her head and over the temporal area and behind her right eye. No blurred vision. No neck pain or stiffness. She says the headache has been there for a week. TRAVEL OUTSIDE OF THE [place] IN LAST 30 DAYS: No - Related Data Allergies/Adverse Reactions: azithromycin Allergy (Verified 11/26/17 01:28) metoclopramide [From Reglan] Allergy (Verified 11/26/17 01:28) morphine Allergy (Verified 11/26/17 01:28) Past Medical History - Social History Smoking Status: Never Smoker Chew tobacco use (# tins/day): No Frequency of alcohol use: Social Drug Abuse: None Family History: Reviewed & Not Pertinent Patient has suicidal ideation: No Patient has homicidal ideation: No - Past Medical History Cardiac Medical History: Reports: Hx Hypertension Neurological Medical History: Reports: Hx Migraine Renal/ Medical History: Denies: Hx Peritoneal Dialysis Psychiatric Medical History: Reports: Hx Depression Past Surgical History: Reports: Hx Cholecystectomy, Hx Tonsillectomy, Hx Tubal Ligation - Immunizations Hx Diphtheria, Pertussis, Tetanus Vaccination: Yes Review of Systems - Review of Systems Notes: My Normal Review Basic REVIEW OF SYSTEMS: CONSTITUTIONAL : Denies fever, chills, or sweats. Denies recent illness. EENT: Denies eye, ear, throat, or mouth pain or symptoms. Denies nasal or sinus congestion. CARDIOVASCULAR: Denies chest pain. RESPIRATORY: Denies cough, cold, or chest congestion. Denies shortness of breath, difficulty breathing, or wheezing. GASTROINTESTINAL: Denies abdominal pain. Denies nausea, vomiting, or diarrhea. MUSCULOSKELETAL: Right hip and back pain with pain rating down right leg. SKIN: Denies rash or skin lesions. NEUROLOGICAL: Denies altered mental status or loss of consciousness. Has a headache. Denies weakness or paralysis or loss of use of either side. Denies problems with gait or speech. Denies sensory or motor loss. ALL OTHER SYSTEMS REVIEWED AND NEGATIVE. Physical Exam - Vital signs Vitals: Temp Pulse Resp BP Pulse Ox 98.5 F 89 20 133/96 H 99 11/25/17 23:48 11/25/17 23:48 11/25/17 23:48 11/25/17 23:48 11/25/17 23:48 - Notes Notes: General Appearance: Well nourished, alert, cooperative, no acute distress, moderate obvious discomfort. Vitals: reviewed, See vital signs table. Head: no swelling or tenderness to the head Eyes: PERRL, EOMI, Conjuctiva clear Mouth: No decreasd moisture Lungs: No wheezing, No rales, No rhonci, No accessory muscle use, good air exchange bilaterally. Heart: Normal rate, Regular rythm, No murmur, no rub Abdomen: Normal BS, soft, No rigidity, No abdominal tenderness, No guarding, no rebound, no abdominal masses, no organomegaly Back: Pain palpation of the right lumbar paraspinal musculature and into the right gluteal region. Palpation here causes pain that goes down the leg. Extremities: strength 5/5 in all extremities, good pulses in all extremities, patient is a small spider vein below the right knee it has been there for a while. Is soft and and not firm. Palpation of anywhere along this area does cause pain which patient says she does have intermittent pain over this area. The knee is not swollen. The leg and foot have normal color. She has good strength in her extremity., no edema. Skin: warm, dry, appropriate color, no rash Neuro: speech clear, oriented x 3, normal affect, responds appropriately to questions. No nerves II through XII are intact. Distal sensation intact. Patient will move all 4 extremities without difficulty. No focal neurologic deficits on exam. Normal coordination of movement. Course - Re-evaluation Re-evalutation: 11/26/17 01:09 I did reevaluate the patient. Her back and leg pain is improved with Toradol and Decadron. She still has a headache. She is allergic to Reglan and morphine. She has had Dilaudid in the past which has helped. She does not come here on a regular basis and I do not suspect she is pain seeking any way. I will give her a dose of Dilaudid to see if this helps relieve her headache. 11/26/17 01:41 After receiving the IM Dilaudid patient suddenly went what appeared to be a panic attack. She is hyperventilating saying she cannot breathe. She thinks she having severe epigastric pain. I did do an immediate bedside FAST exam which is negative. Patient denies any chance she be . We have placed on a monitor. I did give a dose of Ativan as patient says she does have a history of panic attacks. We will give her some IV fluids and check some blood work and closely monitor. Vital signs are currently normal except for tachypnea from hyperventilation. Oxygen saturation is 100% and heart rate is in the 80s. 11/26/17 02:20 Patient's panic attack has gone away with Ativan. She still complained of epigastric pain but is not severe. She says the pain is worse when she takes a deep breath and she feels into her back. In that she does have leg pain in the right side is unilateral I will scan her to make sure is no evidence of dissection. Think this is less likely but the patient had very sudden onset severe pain while here in conjunction with her lateralizing symptoms. Patient is agreeable to this. 11/26/17 03:34 CT scan was negative and did not show any evidence of aortic pathology. Patient 's blood pressure is normalized. She is now, no longer has pain. Severe epigastric pain rating to the back. He states happened shortly after she received Dilaudid. This would be an atypical reaction to Dilaudid however it did happen right after receiving it. Patient received Dilaudid in the past without any issues and that is why did not want initially blame her symptoms on the Dilaudid. Laboratory evaluation is unremarkable except for the leukocytosis. Patient's symptoms completely resolved now. Her panic attack resolved with Ativan. Her leg pain and back pain are improved. Her pain is consistent with that of sciatica. I do suspect this most likely does have sciatica with pain rating from the right lower back down her leg. However follow-up closely with her primary care doctor. I encouraged her return to ER immediately if she has worsening pain, loss of bowel control, urinary retention , fevers, chest pain or shortness of breath, or if she feels unwell. Dictation of this chart was performed using voice recognition software; therefore, there may be some unintended grammatical errors. - Vital Signs Vital signs: Temp Pulse Resp BP Pulse Ox 98.3 F 89 16 121/79 97 11/26/17 03:38 11/25/17 23:48 11/26/17 03:31 11/26/17 03:31 11/26/17 03:31 - Laboratory Result Diagrams: 11/26/17 01:43 11/26/17 01:43 Laboratory results interpreted by me: 11/26/17 01:43 WBC 14.0 H Lymphocytes % 45.7 H Absolute Lymphocytes 6.4 H Discharge - Discharge Clinical Impression: Low back pain Qualifiers: Chronicity: acute Back pain laterality: right Sciatica presence: with sciatica Sciatica laterality: sciatica of right side Qualified Code(s): M54.41 - Lumbago with sciatica, right side Leg pain Qualifiers: Laterality: right Qualified Code(s): M79.604 - Pain in right leg Abdominal pain Qualifiers: Abdominal location: epigastric Qualified Code(s): R10.13 - Epigastric pain Headache Qualifiers: Headache type: unspecified Headache chronicity pattern: acute headache Intractability: not intractable Qualified Code(s): R51 - Headache Condition: Good Disposition: HOME, SELF-CARE Additional Instructions: Please take Tyenol and Motrin for your back and leg pain. Please alternate heat and ice for treatment of the sciatica. Please return to the ER immediately if you develop loss of bowel control, inability to urinate, leg weakness or numbness, fevers, leg swelling, chest pain, or difficulty breathing. Follow up with a doctor or the ER in 2 days for reevaluation if you are still having significant pain. Forms: Return to Work
[2017-11-26] MEDS ORDERED: DEXAMETHASONE SOD PHOS INJ 10 MG/1 ML VIAL IM ONE (00:29)
[2017-11-26] MEDS ORDERED: HYDROMORPHONE HCL INJ/PF 2 MG/ML AMPULE IM ONE (01:07)
[2017-11-26] MEDS ORDERED: LORAZEPAM INJ 2 MG/1 ML VIAL ONE (01:37)
[2017-11-26] MEDS ORDERED: LORAZEPAM INJ 2 MG/1 ML VIAL IM ONE ×2 (01:40→01:48)
[2017-11-26] MEDS ORDERED: NORMAL SALINE 1000 ML 1,000 ML IV ONE (01:41)
[2017-11-26 01:52] LABS: ABSOLUTE BASOPHILS # (AUTO) 0.1 10^3/uL (0.0-0.2); ABSOLUTE EOSINOPHILS # (AUTO) 0.3 10^3/uL (0.0-0.6); ABSOLUTE LYMPHOCYTES (AUTO) 6.4 10^3/uL (0.5-4.7); ABSOLUTE NEUT (AUTO) 6.2 10^3/uL (1.7-8.2); BASOPHILS % (AUTO) 0.6 % (0-2); EOSINOPHILS % (AUTO) 1.9 % (0-6); HEMATOCRIT 41.3 % (36.0-47.0); HEMOGLOBIN 14.4 g/dL (12.0-15.5); LYMPHOCYTES % (AUTO) 45.7 % (13-45); MEAN CORPUSCULAR HEMOGLOBIN 29.1 pg (27.0-33.4); MEAN CORPUSCULAR VOLUME 83 fl (80-97); MONOCYTES % (AUTO) 7.3 % (3-13); PLATELET COUNT 327 10^3/uL (150-450); RED BLOOD COUNT 4.96 10^6/uL (3.72-5.28); RED CELL DISTRIBUTION WIDTH 13.4 % (11.5-14.0); SEGMENTED NEUTROPHILS % (AUTO) 44.5 % (42-78); TOTAL CELLS COUNTED % (AUTO) 100 %
[2017-11-26 02:09] LABS: ALANINE AMINOTRANSFERASE 26 U/L (9-52); ALBUMIN 4.1 g/dL (3.5-5.0); ALKALINE PHOSPHATASE 67 U/L (38-126); ANION GAP 12 (5-19); ASPARTATE AMINO TRANSFERASE 23 U/L (14-36); BILIRUBIN,DIRECT 0.3 mg/dL (0.0-0.4); BILIRUBIN,TOTAL 0.6 mg/dL (0.2-1.3); BLOOD UREA NITROGEN 12 mg/dL (7-20); CALCIUM 9.7 mg/dL (8.4-10.2); CARBON DIOXIDE 27 mmol/L (22-30); CHLORIDE 104 mmol/L (98-107); GLUCOSE 108 mg/dL (75-110); LIPASE 70.7 U/L (23-300); POTASSIUM 3.6 mmol/L (3.6-5.0); SODIUM 143.2 mmol/L (137-145); TOTAL PROTEIN 7.2 g/dL (6.3-8.2)
--- NOTE | 2017-11-26 03:24 | RADIOLOGY REPORT (SQ) ---
CLINICAL HISTORY: severe epigastric abdominal pain , EXAM: CTA Chest, Abdomen and Pelvis with contrast 11/26/2017 2:19 AM CDT COMPARISON: CT abdomen and pelvis with contrast May 20, 2017 TECHNIQUE: Following the administration of intravenous contrast, Volumetric CT acquisition was performed through the chest, abdomen, and pelvis. Images in the axial, coronal, and sagittal planes were presented for interpretation. Maximum intensity projection images were also presented for interpretation. This exam was performed according to our departmental dose-optimization program, which includes automated exposure control, adjustment of the mA and/or kV according to patient size and/or use of iterative reconstruction technique. Radiation dose/contrast: [id number] FINDINGS: The pertinent aortic measurements are as follows: Aortic root: 2.7 cm. Midascending aorta : 2.6 cm. Proximal aortic arch: 2.6 cm. Distal aortic arch: 2.1 cm. Proximal descending aorta : 2.0 cm. Midascending aorta : 1.9 cm. Distal descending aorta : 1.8 cm. Diaphragmatic hiatus : 1.7 cm. Suprarenal aorta : 1.5 cm. Proximal infrarenal aorta : 1.4 cm. Mid infrarenal aorta : 1.2 cm. Aortic bifurcation : 1.2 cm. Chest: There is no evidence of pulmonary embolism on this diagnostic quality study. The lungs are otherwise clear without focal consolidation or pleural effusion. Incidental note is made of an accessory azygos fissure. The heart is normal in size and morphology. The thoracic aorta and its primary branches are normal in course and caliber. The main pulmonary artery and visualized proximal tracheobronchial tree are within normal limits. There are are no pathologically enlarged mediastinal, hilar, supraclavicular, or axillary lymph nodes. . The soft tissue structures of the chest wall are normal. The visualized osseous structures are within normal limits for the patient's age. Abdomen/Pelvis: Within the upper abdomen, the liver and spleen are normal in size and morphology. The gallbladder is surgically absent. There is no intra or extrahepatic biliary ductal dilation. The pancreas and adrenal glands are normal in appearance. The kidneys are normal in size bilaterally and the ureters are normal in course and caliber. There are no renal calculi, distal obstructing stones, or evidence of hydronephrosis/hydroureter. The stomach and small intestines are within normal limits for this exam performed without enteric contrast. The appendix is well-visualized and normal, best seen on axial image 153 medial to the cecum. The colon is stool filled and otherwise unremarkable. Within the pelvis, the bladder and rectum are normal. The uterus and ovaries are age-appropriate. There are no pathologically enlarged inguinal, retroperitoneal, portacaval, or mesenteric lymph nodes. The soft tissue structures of the abdominal wall are normal in appearance. The visualized osseous structures within normal limits for the patient's age. The abdominal aorta and its primary branches are normal in course and caliber. IMPRESSION: Chest: 1. No evidence of thoracic aortic aneurysm, dissection, or pulmonary embolism 2. No acute intrathoracic process Abdomen/Pelvis: 1. No acute intra-abdominal process. 2. No evidence of abdominal aortic aneurysm or dissection. 3. Status post cholecystectomy.
[2017-11-26 03:58] VITALS: BP 121/79
== END 2017-11-26 03:58 | disposition home or self-care (01) ==
LOC: ER 23:34
DX: M54.41 Lumbago with sciatica, right side (principal); M79.604 Pain in right leg; R10.13 Epigastric pain; R51 Headache; Z88.3 Allergy status to other anti-infective agents; Z88.6 Allergy status to analgesic agent
CPT/HCPCS: 99284; 96372; 96361; 96374; 36415; 83690; 84703; 85025; 80053; 71275; 74174; J1885; J1170; J2060; J7030; J1100

== ENCOUNTER 2017-12-19 13:39 | Emergency (ER) | payer OTHER ==
--- NOTE | 2017-12-19 14:27 | ER Document Report ---
ED Medical Screen (RME) - General Chief Complaint: Chest Pain Stated Complaint: CHEST PAIN, FINGER NUMBNESS Time Seen by Provider: 12/19/17 14:13 Mode of Arrival: Medic Information source: Patient TRAVEL OUTSIDE OF THE [place] IN LAST 30 DAYS: No - HPI Notes: 12/19/17 14:23 27-year-old female with a medical history of anxiety, heart palpitations and panic attacks presents via EMS with complaints of sudden onset chest pain, shortness of breath, dizziness, palpitations, sharp back pain between shoulder blades at work and numbness and tingling down right arm. Patient states that her "heart hurt" and states it felt different from having an anxiety attack. Patient has never been seen by manual tester, does not have a PCP. Non-smoker, denies history of asthma or seasonal allergies. Patient has not tried any over- the-counter medications. Patient was given 325mg of aspirin to chew while in EMS. Denies any illicit drug use. Denies any new stressors, no new foods travel or medications. LMP 2 weeks ago, denies . Denies fevers, nausea, vomiting, diarrhea, abdominal pain, hematuria,blurred vision, double vision, loss of vision, speech changes, LH, dizziness, syncope, headaches, wheezing, ST, URI, neck pain, weakness, bowel or bladder dysfunction, saddle anesthesia,muscle paralysis, weakness in bilateral upper or lower extremities equally or rash. Denies IV drug use. I have greeted and performed a rapid initial assessment of this patient. A comprehensive ED assessment and evaluation of the patient, analysis of test results and completion of medical decision making process will be conducted by an additional ED providers. - Related Data Allergies/Adverse Reactions: azithromycin Allergy (Verified 11/26/17 01:28) metoclopramide [From Reglan] Allergy (Verified 11/26/17 01:28) morphine Allergy (Verified 11/26/17 01:28) Past Medical History - Past Medical History Cardiac Medical History: Reports: Hx Hypertension Neurological Medical History: Reports: Hx Migraine Renal/ Medical History: Denies: Hx Peritoneal Dialysis Psychiatric Medical History: Reports: Hx Depression Past Surgical History: Reports: Hx Cholecystectomy, Hx Tonsillectomy, Hx Tubal Ligation - Immunizations Hx Diphtheria, Pertussis, Tetanus Vaccination: Yes Physical Exam - General General appearance: Appears well In distress: None - Respiratory Respiratory status: No respiratory distress Chest status: Nontender Breath sounds: Normal Chest palpation: Normal - Cardiovascular Rhythm: Regular Heart sounds: Normal auscultation Murmur: No Normal capillary refill: Yes - Neurological Neuro grossly intact: Yes Cognition: Normal Orientation: AAOx4 Reba Coma Scale Eye Opening: Spontaneous [place] Coma Scale Verbal: Oriented Reba Coma Scale Motor: Obeys Commands [place] Coma Scale Total: 15 Speech: Normal Cranial nerves: Normal Motor strength normal: LUE, RUE, LLE, RLE Additional motor exam normals: Equal shear setter - bilaterally Doctor's Discharge - Discharge Referrals: LOCALMD,NO [Primary Care Provider] - Follow up as needed
[2017-12-19 14:59] LABS: ABSOLUTE BASOPHILS # (AUTO) 0.1 10^3/uL (0.0-0.2); ABSOLUTE EOSINOPHILS # (AUTO) 0.2 10^3/uL (0.0-0.6); ABSOLUTE LYMPHOCYTES (AUTO) 3.7 10^3/uL (0.5-4.7); ABSOLUTE MONOCYTES (AUTO) 0.9 10^3/uL (0.1-1.4); BASOPHILS % (AUTO) 0.6 % (0-2); EOSINOPHILS % (AUTO) 1.5 % (0-6); HEMATOCRIT 42.9 % (36.0-47.0); HEMOGLOBIN 14.9 g/dL (12.0-15.5); LYMPHOCYTES % (AUTO) 34.5 % (13-45); MEAN CORPUSCULAR HGB CONC 34.8 g/dL (32.0-36.0); MEAN CORPUSCULAR VOLUME 83 fl (80-97); MONOCYTES % (AUTO) 8.3 % (3-13); PLATELET COUNT 353 10^3/uL (150-450); RED BLOOD COUNT 5.16 10^6/uL (3.72-5.28); RED CELL DISTRIBUTION WIDTH 13.4 % (11.5-14.0); SEGMENTED NEUTROPHILS % (AUTO) 55.1 % (42-78); TOTAL CELLS COUNTED % (AUTO) 100 %; WHITE BLOOD COUNT 10.8 10^3/uL (4.0-10.5)
[2017-12-19 15:14] LABS: APPEARANCE,URINE CLOUDY; BILIRUBIN,URINE NEGATIVE (NEGATIVE); COLOR,URINE YELLOW; GLUCOSE, URINE NEGATIVE (NEGATIVE); KETONES,URINE NEGATIVE (NEGATIVE); LEUKOCYTE ESTERASE,URINE LARGE (NEGATIVE); NITRITE,URINE NEGATIVE (NEGATIVE); PROTEIN,URINE NEGATIVE (NEGATIVE); URINE SPECIFIC GRAVITY 1.013; UROBILINOGEN,URINE NEGATIVE mg/dL (<2.0)
[2017-12-19 15:20] LABS: ALANINE AMINOTRANSFERASE 20 U/L (9-52); ALBUMIN 4.2 g/dL (3.5-5.0); ALKALINE PHOSPHATASE 68 U/L (38-126); ANION GAP 13 (5-19); ASPARTATE AMINO TRANSFERASE 21 U/L (14-36); BILIRUBIN,DIRECT 0.2 mg/dL (0.0-0.4); BILIRUBIN,TOTAL 0.6 mg/dL (0.2-1.3); BLOOD UREA NITROGEN 13 mg/dL (7-20); CALCIUM 9.8 mg/dL (8.4-10.2); CARBON DIOXIDE 24 mmol/L (22-30); CHLORIDE 105 mmol/L (98-107); CREATINE KINASE 23 U/L (30-135); GLUCOSE 91 mg/dL (75-110); POTASSIUM 4.3 mmol/L (3.6-5.0); TOTAL PROTEIN 7.7 g/dL (6.3-8.2)
--- NOTE | 2017-12-19 15:29 | RADIOLOGY REPORT (SQ) ---
EXAM DESCRIPTION: CHEST SINGLE VIEW COMPLETED DATE/TIME: 12/19/2017 2:56 pm REASON FOR STUDY: chest pain COMPARISON: CTA chest 11/26/2017 EXAM PARAMETERS: NUMBER OF VIEWS: One view. TECHNIQUE: Single frontal radiographic view of the chest acquired. RADIATION DOSE: NA LIMITATIONS: None. FINDINGS: LUNGS AND PLEURA: No opacities, masses or pneumothorax. No pleural effusion. MEDIASTINUM AND HILAR STRUCTURES: No masses. Contour normal. HEART AND VASCULAR STRUCTURES: Heart normal in size. Normal vasculature. BONES: No acute findings. HARDWARE: None in the chest. OTHER: No other significant finding. IMPRESSION: NO ACUTE RADIOGRAPHIC FINDING IN THE CHEST. TECHNICAL DOCUMENTATION: JOB ID: [id number] [employer]- All Rights Reserved Reading location - IP/workstation name: [email or web address]
[2017-12-19 16:08] LABS: CREATINE KINASE MB < 0.22 ng/mL (<4.55); TROPONIN I < 0.012 ng/mL
[2017-12-19] MEDS ORDERED: CEPHALEXIN 500 MG CAPSULE PO ONE (18:26)
--- NOTE | 2017-12-19 20:36 | ER Document Report ---
ED Cardiac - General Chief Complaint: Chest Pain Stated Complaint: CHEST PAIN, FINGER NUMBNESS Time Seen by Provider: 12/19/17 14:13 Mode of Arrival: Medic Information source: Patient TRAVEL OUTSIDE OF THE [place] IN LAST 30 DAYS: No - HPI Patient complains to provider of: Chest pain, Palpitations Was the onset of pain: Sudden Is the pain a: Chronic problem Chest pain location: Substernal Quality of pain: Intermittent, Mild Chest pain radiation location: None Severity now: None Severity at worst: Moderate Pain level currently: 4 Chest pain precipitating factors: At Rest Cardiac risk factors: None Positive cardiac history: No Associated symptoms: Anxiety Exacerbated by: Denies Relieved by: Nothing Similar symptoms previously: Yes Recently seen / treated by doctor: No - Related Data Allergies/Adverse Reactions: azithromycin Allergy (Verified 11/26/17 01:28) metoclopramide [From Reglan] Allergy (Verified 11/26/17 01:28) morphine Allergy (Verified 11/26/17 01:28) Past Medical History - General Information source: Patient - Social History Smoking Status: Unknown if Ever Smoked Family History: Reviewed & Not Pertinent Patient has suicidal ideation: No Patient has homicidal ideation: No - Past Medical History Cardiac Medical History: Reports: Hx Hypertension Neurological Medical History: Reports: Hx Migraine Renal/ Medical History: Denies: Hx Peritoneal Dialysis Psychiatric Medical History: Reports: Hx Depression Past Surgical History: Reports: Hx Cholecystectomy, Hx Tonsillectomy, Hx Tubal Ligation - Immunizations Hx Diphtheria, Pertussis, Tetanus Vaccination: Yes Review of Systems - Review of Systems Constitutional: denies: Chills, Fever EENT: No symptoms reported Cardiovascular: Chest pain, Palpitations, Heart racing Respiratory: No symptoms reported Gastrointestinal: No symptoms reported Genitourinary: No symptoms reported Female Genitourinary: No symptoms reported Musculoskeletal: No symptoms reported Skin: No symptoms reported Hematologic/Lymphatic: denies: Easy bleeding, Easy bruising Neurological/Psychological: No symptoms reported -: Yes All other systems reviewed and negative Physical Exam - Vital signs Vitals: Temp Pulse Resp BP Pulse Ox 97.8 F 86 16 126/89 H 99 12/19/17 17:04 12/19/17 17:04 12/19/17 17:04 12/19/17 17:04 12/19/17 17:04 - General General appearance: Appears well In distress: None - HEENT Head: Normocephalic, Atraumatic Eyes: Normal Pupils: PERRL - Respiratory Respiratory status: No respiratory distress Chest status: Nontender Breath sounds: Normal Chest palpation: Normal - Cardiovascular Rhythm: Regular Heart sounds: Normal auscultation Murmur: No - Abdominal Inspection: Normal Distension: No distension Bowel sounds: Normal Tenderness: Nontender Organomegaly: No organomegaly - Back Back: Normal, Nontender - Extremities General upper extremity: Normal inspection, Nontender, Normal color, Normal ROM , Normal temperature General lower extremity: Normal inspection, Nontender, Normal color, Normal ROM , Normal temperature, Normal weight bearing. No: Dell's sign - Neurological Neuro grossly intact: Yes Cognition: Normal Orientation: AAOx4 Reba Coma Scale Eye Opening: Spontaneous [place] Coma Scale Verbal: Oriented [place] Coma Scale Motor: Obeys Commands [place] Coma Scale Total: 15 Speech: Normal Motor strength normal: LUE, RUE, LLE, RLE Sensory: Normal - Psychological Associated symptoms: Normal affect, Normal mood - Skin Skin Temperature: Warm Skin Moisture: Dry Skin Color: Normal Course - Vital Signs Vital signs: Temp Pulse Resp BP Pulse Ox 97.8 F 86 16 126/89 H 99 12/19/17 17:04 12/19/17 17:04 12/19/17 17:04 12/19/17 17:04 12/19/17 17:04 - Laboratory Result Diagrams: 12/19/17 13:15 12/19/17 13:15 Laboratory results interpreted by me: 12/19/17 12/19/17 12/19/17 13:15 13:15 14:40 WBC 10.8 H Creatine Kinase 23 L Ur Leukocyte Esterase LARGE H - EKG Interpretation by [place] EKG shows normal: Sinus rhythm Rate: Normal - 85 Rhythm: NSR When compared to previous EKG there are: Previous EKG unavailable Additional EKG results interpreted by nd: 12/19/17 20:35 No STEMI. Discharge - Discharge Clinical Impression: Anxiety UTI (urinary tract infection) Qualifiers: Urinary tract infection type: acute cystitis Hematuria presence: without hematuria Qualified Code(s): N30.00 - Acute cystitis without hematuria Condition: Stable Disposition: HOME, SELF-CARE Instructions: Anxiety ([facility]), Chest Pain of Unclear Cause ([facility]), Urinary Tract Infection ([facility]) Additional Instructions: Follow up with your regular doctor tomorrow morning. Return to the ED if your condition worsens. Prescriptions: Cephalexin Monohydrate [Keflex 500 mg Capsule] 500 mg PO TID 10 Days #30 capsule Referrals: LOCAL,NO [NO LOCAL MD] - Follow up as needed
[2017-12-19 21:54] VITALS: BP 139/98
--- NOTE | 2017-12-19 22:01 | EKG REPORT ---
SEVERITY:- BORDERLINE ECG - SINUS RHYTHM INFERIOR Q WAVES, PROBABLY NORMAL VARIATION : Confirmed by: Kenyatta Edmonds 19-Dec-2017 22:00:14
== END 2017-12-19 21:55 | disposition home or self-care (01) ==
LOC: ER 13:39
DX: F41.9 Anxiety disorder, unspecified (principal); N30.00 Acute cystitis without hematuria; R07.89 Other chest pain; R00.2 Palpitations; I10 Essential (primary) hypertension; Z88.1 Allergy status to other antibiotic agents; Z88.8 Allergy status to other drugs, medicaments and biological substances; Z88.5 Allergy status to narcotic agent
CPT/HCPCS: 36415; 71045; 80053; 81001; 82550; 82553; 84484; 84703; 85025; 93005; 93010; 99285

== ENCOUNTER 2018-04-02 09:13 | Emergency (ER) | payer SELFPAY ==
[2018-04-02] MEDS ORDERED: NORMAL SALINE 1000 ML 1,000 ML IV ONE (09:49)
[2018-04-02] MEDS ORDERED: PROMETHAZINE HCL INJ 25 MG/1 ML VIAL IV ONE (09:49)
--- NOTE | 2018-04-02 09:49 | ER Document Report ---
ED Medical Screen (RME) - General Chief Complaint: Headache >24 hrs old Stated Complaint: HEADACHE/NUMBNESS IN FACE Time Seen by Provider: 04/02/18 09:44 Notes: Patient is a 27-year-old female with history of migraines that presents to the emergency department for chief complaint of headache, and facial paresthesia which she has a history of, and multiple other complaints, including a sensation and paresthesia in her right foot which seems to trigger her headaches. ROS: Other than noted above, the 12 point review of systems was reviewed with the patient and were negative, all pertinent findings are included in the HPI. PHYSICAL EXAMINATION: Vital signs reviewed. GENERAL: Well-appearing, well-nourished and in no acute distress. HEAD: Atraumatic, normocephalic. EYES: Pupils equal round extraocular movements intact, conjunctiva are normal. ENT: Nares patent NECK: Normal range of motion CV: Heart regular rate and rhythm LUNGS: No respiratory distress Musculoskeletal: Normal range of motion NEUROLOGICAL: Normal speech PSYCH: Normal mood, normal affect. MDM: Patient seen and examined for rapid initial assessment. Vital signs reviewed. A comprehensive ED assessment and evaluation of the patient, analysis of test results and completion of the medical decision making process will be conducted by additional ED providers. *Note is created using voice recognition software and may contain spelling, syntax or grammatical errors. TRAVEL OUTSIDE OF THE [place] IN LAST 30 DAYS: No - Related Data Allergies/Adverse Reactions: azithromycin Allergy (Verified 04/02/18 09:20) metoclopramide [From Reglan] Allergy (Verified 04/02/18 09:20) morphine Allergy (Verified 04/02/18 09:20) Past Medical History - Past Medical History Cardiac Medical History: Reports: Hx Hypertension Neurological Medical History: Reports: Hx Migraine Renal/ Medical History: Denies: Hx Peritoneal Dialysis Psychiatric Medical History: Reports: Hx Depression Past Surgical History: Reports: Hx Cholecystectomy, Hx Tonsillectomy, Hx Tubal Ligation - Immunizations Hx Diphtheria, Pertussis, Tetanus Vaccination: Yes Physical Exam - Vital signs Vitals: Temp Pulse Resp BP Pulse Ox 98.5 F 77 20 137/98 H 100 04/02/18 09:35 04/02/18 09:35 04/02/18 09:35 04/02/18 09:35 04/02/18 09:35 Course - Vital Signs Vital signs: Temp Pulse Resp BP Pulse Ox 98.5 F 77 20 137/98 H 100 04/02/18 09:35 04/02/18 09:35 04/02/18 09:35 04/02/18 09:35 04/02/18 09:35
[2018-04-02] MEDS ORDERED: MAGNESIUM SULFATE/D5W 1 GM/100 ML RTUPB IV ONE (09:50)
[2018-04-02] MEDS ORDERED: PROCHLORPERAZINE EDISYLATE INJ 10 MG/2 ML VIAL IV ONE (10:39)
[2018-04-02] MEDS ORDERED: DIPHENHYDRAMINE HCL 50 MG/ML VIAL IV ONE (10:39)
[2018-04-02] MEDS ORDERED: KETOROLAC TROMETHAMINE INJ/PF 30 MG/1 ML SDV IV ONE (10:40)
--- NOTE | 2018-04-02 10:40 | ER Document Report ---
ED General - General Chief Complaint: Headache >24 hrs old Stated Complaint: HEADACHE/NUMBNESS IN FACE Time Seen by Provider: 04/02/18 09:44 TRAVEL OUTSIDE OF THE [place] IN LAST 30 DAYS: No - HPI Notes: Patient is a 27-year-old female with a history of migraines and complex migraines as well as low back pain who presents to the ED complaining of re- exacerbation of her headache which she has multiple times throughout the week. Patient states that it starts in the same area and ask the same as previous migraines. Patient states that she will occasionally get numbness and tingling to the right side of her head and face which is not uncommon for her. Patient states that she does continue to have intermittent numbness tingling down her right leg primarily anterior with occasional back pain. Patient states that she has been having palpitations for over a month and has been evaluated in the past for them, but has not been seen by any other specialist. Last palpitation episode was yesterday, never any LOC. She does take [id number] meds for her headaches which usually help, but on occasion she will have to come here for medicines. She has no other concerns or complaints. She has been eating and drinking without any difficulties. She is urinating normally and having normal bowel movements. Denies . Denies any fever, head injury, neck pain, changes in vision/speech/mentation/hearing, URI, sore throat, chest pain, syncope, cough, shortness of breath, wheeze, dyspnea, abdominal pain, nausea/ vomiting/diarrhea, urinary retention, dysuria, hematuria, loss of control of bowel or bladder, saddle anesthesia, muscle paralysis/weakness, or rash. Denies any prolonged immobilization, distance travel, recent surgery/trauma, personal cancer history, hormone use, smoking, or previous DVT/PE. - Related Data Allergies/Adverse Reactions: azithromycin Allergy (Verified 04/02/18 09:20) metoclopramide [From Reglan] Allergy (Verified 04/02/18 09:20) morphine Allergy (Verified 04/02/18 09:20) Past Medical History - Social History Smoking Status: Never Smoker Frequency of alcohol use: None Drug Abuse: None Family History: Reviewed & Not Pertinent Patient has suicidal ideation: No Patient has homicidal ideation: No - Past Medical History Cardiac Medical History: Reports: Hx Hypertension Neurological Medical History: Reports: Hx Migraine Renal/ Medical History: Denies: Hx Peritoneal Dialysis Psychiatric Medical History: Reports: Hx Depression Past Surgical History: Reports: Hx Cholecystectomy, Hx Tonsillectomy, Hx Tubal Ligation - Immunizations Hx Diphtheria, Pertussis, Tetanus Vaccination: Yes Review of Systems - Review of Systems -: Yes All other systems reviewed and negative Physical Exam - Vital signs Vitals: Temp Pulse Resp BP Pulse Ox 98.5 F 77 20 137/98 H 100 04/02/18 09:35 04/02/18 09:35 04/02/18 09:35 04/02/18 09:35 04/02/18 09:35 - Notes Notes: PHYSICAL EXAMINATION: GENERAL: Well-appearing, well-nourished and in no acute distress. A&Ox4. Answers questions appropriately. HEAD: Atraumatic, normocephalic. + Reproducible tenderness in the area of rt occipital nerve bundle. EYES: Pupils equal round and reactive to light, extraocular movements intact, sclera anicteric, conjunctiva are normal. No nystagmus. vis george intact. ENT: EAC clear b/l. TM's intact b/l without erythema, fluid, or perforation. Nares patent and without discharge. oropharynx clear without exudates. No tonsilar hypertrophy or erythema. Moist mucous membranes. No sinus tenderness. NECK: Normal range of motion, supple without lymphadenopathy. No rigidity/ meningismus. No midline tenderness. LUNGS: Breath sounds clear to auscultation bilaterally and equal. No wheezes rales or rhonchi. HEART: Regular rate and rhythm without murmurs, rubs, gallops. ABDOMEN: Soft, nontender, nondistended abdomen. No guarding, no rebound. Normal bowel sounds present. No CVA tenderness bilaterally. Musculoskeletal: Ext's b/l: FROM to passive/active. Strength 5+/5. No deficits noted. No bony tenderness of extremities. Back: FROM to passive/active. Strength 5+/5. No vertebral point tenderness, stepoffs, or deformities. No other bony tenderness, erythema, swelling, or ecchymosis. SLR negative b/l. No SI jt tenderness. No foot drop Extremities: No cyanosis, clubbing, or edema b/l. Peripheral pulses 2+. Capillary refill less than 2 seconds. NEUROLOGICAL: NIH 0. GCS 15. Cranial nerves grossly intact. Normal speech, normal gait. Normal sensory, motor exams. No deficit to sensation of face/ limbs. Reflexes 2+ b/l. LOUIS's negative. Pronator drift negative. Heel/payne, finger/nose wnl. Rhomberg neg. PSYCH: Normal mood, normal affect. SKIN: Warm, Dry, normal turgor, no rashes or lesions noted. Course - Re-evaluation Re-evalutation: 04/02/18 10:46 Patient has repeatedly stated that this is her typical migraine that she has frequently and all of her complaints are not acute. She has had all these complaints in the past and has been investigated in the past, but she has not been following up with anyone. We will give her medicines and fluids and do basic blood work/EKG. She currently does not have any chest pain, dyspnea, shortness of breath, palpitations. She is nontoxic-appearing and is tolerating p.o. without difficulty. Vitals are currently acceptable. 04/02/18 11:55 Patient just received her IV medication, not magnesium yet, and begin having immediate nausea. Reviewing patient's chart, she had similar symptoms with media administration of medicine through her IV before which was Dilaudid. We will observe for now and she will let us know if any symptoms begin to worsen. 04/02/18 12:50 Patient is an afebrile, well-hydrated 27-year-old female who presents to the ED with headache, suspect 1 of her typical migraines, low back pain/the radiculitis. Vitals are acceptable without any significant tachycardia, tachypnea, or hypoxia. PE is otherwise unremarkable for any focal neurological deficits. She has no significant tachycardia, tachypnea, or hypoxia. She is nontoxic-appearing and is tolerating p.o. without difficulties. There are no signs of infection. No other red flag symptoms noted. CBC, CMP, urinalysis, hCG were unremarkable. EKG unremarable. She has not had any worsening symptoms or development of chest pain, shortness of breath, dyspnea on exertion. No other labs or imaging warranted at this time based on H&P. Pt was given toradol , benadryl, compazine, and magnesium which completely resolved her PARK and symptoms. Pt would like to go home at this time. Low suspicion for any meningitis, fracture, expanding/ruptured AAA, cauda equina syndrome, epidural mass lesion/abscess, herniated disc causing severe spinal stenosis, DVT, intracranial pathology, or other systemic infection at this time. Patient is aware that this condition can change from initial presentation and that she needs monitor symptoms closely for any acute changes. I will send her home with a prescription for baclofen. Conservative measures otherwise for symptoms. Recheck with your PCM in 3-5 days. Consider consult with orthopedic/ physical therapy/Neuro. Return to the ED with any worsening/concerning symptoms otherwise as reviewed discharge. Patient is in agreement. - Vital Signs Vital signs: Temp Pulse Resp BP Pulse Ox 98.5 F 77 20 137/98 H 100 04/02/18 09:35 04/02/18 09:35 04/02/18 09:35 04/02/18 09:35 04/02/18 09:35 - Laboratory Result Diagrams: 04/02/18 10:37 04/02/18 10:37 Laboratory results interpreted by me: 04/02/18 04/02/18 10:37 10:37 WBC 12.1 H Ur Leukocyte Esterase SMALL H Discharge - Discharge Clinical Impression: Radiculitis Headache Qualifiers: Headache type: unspecified Headache chronicity pattern: acute headache Intractability: not intractable Qualified Code(s): R51 - Headache Low back pain Qualifiers: Chronicity: acute Back pain laterality: right Sciatica presence: unspecified whether sciatica present Qualified Code(s): M54.5 - Low back pain Condition: Stable Disposition: HOME, SELF-CARE Instructions: Headache ([facility]) Additional Instructions: Rest, Ice/cool compress Tylenol/ibuprofen as needed Light stretches daily Strength exercises as able Moist heat and massage may help F/u with your PCP in 3-5 days for a recheck Consider consult(s) with Orthopedics/physical therapy/Neurology for ongoing/ worsening symptoms Return to the ED with any worsening symptoms and/or development of fever, headache, changes in behavior/mentation/vision/speech, chest pain, palpitations , syncope, shortness of breath, trouble breathing, abdominal pain, n/v/d, blood in stool/urine, loss of control of bowel/bladder, urinary retention, muscle weakness/paralysis, saddle anesthesia, numbness/tingling, or other worsening symptoms that are concerning to you. Prescriptions: Naproxen 500 mg PO BID #20 tablet Forms: Elevated Blood Pressure Referrals: TRISTA SOLARES MD [EMERITUS] - Follow up as needed [facility] [Provider Group] - Follow up as needed [facility] [Provider Group] - 04/05/18
[2018-04-02 10:55] LABS: ABSOLUTE BASOPHILS # (AUTO) 0.1 10^3/uL (0.0-0.2); ABSOLUTE EOSINOPHILS # (AUTO) 0.2 10^3/uL (0.0-0.6); ABSOLUTE MONOCYTES (AUTO) 0.7 10^3/uL (0.1-1.4); ABSOLUTE NEUT (AUTO) 7.2 10^3/uL (1.7-8.2); BASOPHILS % (AUTO) 0.5 % (0-2); EOSINOPHILS % (AUTO) 1.3 % (0-6); HEMOGLOBIN 14.7 g/dL (12.0-15.5); LYMPHOCYTES % (AUTO) 33.3 % (13-45); MEAN CORPUSCULAR HEMOGLOBIN 28.4 pg (27.0-33.4); MEAN CORPUSCULAR HGB CONC 34.2 g/dL (32.0-36.0); MEAN CORPUSCULAR VOLUME 83 fl (80-97); MONOCYTES % (AUTO) 5.6 % (3-13); PLATELET COUNT 315 10^3/uL (150-450); RED BLOOD COUNT 5.17 10^6/uL (3.72-5.28); RED CELL DISTRIBUTION WIDTH 13.4 % (11.5-14.0); SEGMENTED NEUTROPHILS % (AUTO) 59.3 % (42-78); TOTAL CELLS COUNTED % (AUTO) 100 %; WHITE BLOOD COUNT 12.1 10^3/uL (4.0-10.5)
[2018-04-02 11:00] LABS: APPEARANCE,URINE SLIGHTLY-CLOUDY; BILIRUBIN,URINE NEGATIVE (NEGATIVE); COLOR,URINE YELLOW; GLUCOSE, URINE NEGATIVE (NEGATIVE); KETONES,URINE NEGATIVE (NEGATIVE); LEUKOCYTE ESTERASE,URINE SMALL (NEGATIVE); NITRITE,URINE NEGATIVE (NEGATIVE); PROTEIN,URINE NEGATIVE (NEGATIVE); URINE SPECIFIC GRAVITY 1.015; UROBILINOGEN,URINE NEGATIVE mg/dL (<2.0)
[2018-04-02 11:21] LABS: ALANINE AMINOTRANSFERASE 14 U/L (9-52); ALBUMIN 4.3 g/dL (3.5-5.0); ALKALINE PHOSPHATASE 75 U/L (38-126); ANION GAP 10 (5-19); ASPARTATE AMINO TRANSFERASE 18 U/L (14-36); BILIRUBIN,DIRECT 0.3 mg/dL (0.0-0.4); BILIRUBIN,TOTAL 0.8 mg/dL (0.2-1.3); BLOOD UREA NITROGEN 8 mg/dL (7-20); CALCIUM 9.4 mg/dL (8.4-10.2); CARBON DIOXIDE 29 mmol/L (22-30); CHLORIDE 102 mmol/L (98-107); GLUCOSE 95 mg/dL (75-110); SODIUM 140.9 mmol/L (137-145); TOTAL PROTEIN 7.7 g/dL (6.3-8.2)
[2018-04-02 13:19] VITALS: BP 128/88
--- NOTE | 2018-04-03 07:24 | EKG REPORT ---
SEVERITY:- BORDERLINE ECG - SINUS RHYTHM INFERIOR Q WAVES, PROBABLY NORMAL VARIATION : Confirmed by: Kenyatta Edmonds 03-Apr-2018 07:23:12
== END 2018-04-02 13:19 | disposition home or self-care (01) ==
LOC: ER 09:13
DX: R51 Headache (principal); M54.10 Radiculopathy, site unspecified; M54.5 Low back pain; R20.0 Anesthesia of skin; R20.2 Paresthesia of skin; R11.0 Nausea; I10 Essential (primary) hypertension; Z86.69 Personal history of other diseases of the nervous system and sense organs; Z88.1 Allergy status to other antibiotic agents; Z88.5 Allergy status to narcotic agent; Z88.8 Allergy status to other drugs, medicaments and biological substances
CPT/HCPCS: 93005; 99284; 96375; 96365; 36415; 83735; 85025; 81025; 80053; 81001; 93010; J1200; J1885; J3475; J0780; J7030

== ENCOUNTER 2018-06-13 13:23 | Emergency (ER) | payer SELFPAY ==
[2018-06-13 13:31] VITALS: BP 123/88
[2018-06-13] MEDS ORDERED: CEPHALEXIN 500 MG CAPSULE PO ONE (14:06)
[2018-06-13] MEDS ORDERED: SULFAMETHOXAZOLE/TRIMETHOPRIM 800-160 MG TABLET PO ONE (14:07)
--- NOTE | 2018-06-13 14:10 | ER Document Report ---
HPI - HPI Time Seen by Provider: 06/13/18 13:50 Pain Level: 4 Notes: Patient is a 27-year-old female who presents with possible insect bite to her left upper arm. She states that she first noticed it last night. She denies any pain at the site but reports that it is itchy. Patient reports there is been some clear drainage from the area and that she has pain in her joints of that extremity. - REPRODUCTIVE Reproductive: DENIES: : Past Medical History - Social History Smoking Status: Never Smoker Family History: Reviewed & Not Pertinent - Past Medical History Cardiac Medical History: Reports: Hx Hypertension Neurological Medical History: Reports: Hx Migraine Renal/ Medical History: Denies: Hx Peritoneal Dialysis Psychiatric Medical History: Reports: Hx Depression Past Surgical History: Reports: Hx Cholecystectomy, Hx Tonsillectomy, Hx Tubal Ligation - Immunizations Hx Diphtheria, Pertussis, Tetanus Vaccination: Yes Vertical Provider Document - CONSTITUTIONAL Notes: PHYSICAL EXAMINATION: GENERAL: Well-appearing, well-nourished and in no acute distress. HEAD: Atraumatic, normocephalic. EYES: Pupils equal round extraocular movements intact, conjunctiva are normal. ENT: Nares patent NECK: Normal range of motion LUNGS: No respiratory distress Musculoskeletal: Normal range of motion NEUROLOGICAL: Normal speech, normal gait. PSYCH: Normal mood, normal affect. SKIN: Warm, Dry, normal turgor, area of erythema with mild induration noted to the left upper arm, no fluctuance noted. - INFECTION CONTROL TRAVEL OUTSIDE OF THE [place] IN LAST 30 DAYS: No Course - Re-evaluation Re-evalutation: 06/13/18 14:08 Physical examination is consistent with early cellulitis. Discussed case with Dr. Saeed due to patients report of joint pain and patient stating that she thinks it was a spider bite. Will place patient on p.o. antibiotics and cover for possible MRSA infection. Skin was marked with a surgical marker, patient given ED return precautions. - Vital Signs Vital signs: Temp Pulse Resp BP Pulse Ox 98.7 F 97 17 123/88 H 99 06/13/18 13:28 06/13/18 13:28 06/13/18 13:28 06/13/18 13:28 06/13/18 13:28 Discharge - Discharge Clinical Impression: Cellulitis Qualifiers: Site of cellulitis: extremity Site of cellulitis of extremity: upper extremity Laterality: left Qualified Code(s): L03.114 - Cellulitis of left upper limb Condition: Stable Disposition: HOME, SELF-CARE Additional Instructions: Cellulitis You have an infection of your skin and underlying soft tissues called cellulitis. This is due to bacteria, which can enter through any break in the skin, or even through an irritated hair follicle. Untreated, cellulitis will us ually worsen. Antibiotics are required. Usually, warm packs or warm soaks, and elevation of the infected area are recommended. You should start getting better within 24 to 36 hours. Most infections respond quickly to the right medication. Follow-up care is important, however, to check for abscess (boil) formation, unsuspected foreign body, or resistant infection. If you develop fever, chills, or if the area of infection is becoming rapidly more swollen or painful, call the doctor at once. Please take antibiotics as prescribed. Please return to the emergency department if you develop fever, chills or if the area of redness extends significantly or becomes more painful. Prescriptions: Cephalexin [Cephalexin 500 MG Tablet] 500 mg PO BID 10 Days #20 tablet Sulfamethoxazole/Trimethoprim [Bactrim Ds Tablet] 1 tab PO BID #20 tablet
== END 2018-06-13 14:23 | disposition home or self-care (01) ==
LOC: ER 13:23
DX: L03.114 Cellulitis of left upper limb (principal); M79.602 Pain in left arm; I10 Essential (primary) hypertension; W57.XXXA Bitten or stung by nonvenomous insect and other nonvenomous arthropods, initial encounter
CPT/HCPCS: 99281

== ENCOUNTER 2018-06-13 22:10 | Emergency (ER) | payer SELFPAY ==
[2018-06-13] MEDS ORDERED: SULFAMETHOXAZOLE/TRIMETHOPRIM 800-160 MG TABLET PO ONE (23:52)
[2018-06-13] MEDS ORDERED: CEFTRIAXONE INJ 1000 MG VIAL IM ONE (23:52)
[2018-06-13] MEDS ORDERED: DIPHENHYDRAMINE HCL 25 MG CAPSULE PO ONE (23:52)
--- NOTE | 2018-06-13 23:55 | ER Document Report ---
ED Medical Screen (RME) - General Chief Complaint: Arm Problem Stated Complaint: LEFT ARM PAIN Time Seen by Provider: 06/13/18 23:51 Notes: 27-year-old female with chief complaint of area that developed over her left arm that she was evaluated for earlier today, initially it appeared to be hives but then she noticed that there was a clear draining area in the center, then developing redness began. She also states it itches. She states that she was seen, given Bactrim and Keflex, has not been able to fill her prescription yet, however the area spread outside of the marked borders. The area has also started to become painful and her arm has started to ache. Denies fever or chills. She is not a diabetic. TRAVEL OUTSIDE OF THE [place] IN LAST 30 DAYS: No - Related Data Allergies/Adverse Reactions: azithromycin Allergy (Verified 04/02/18 09:20) metoclopramide [From Reglan] Allergy (Verified 04/02/18 09:20) morphine Allergy (Verified 04/02/18 09:20) Past Medical History - Past Medical History Cardiac Medical History: Reports: Hx Hypertension Neurological Medical History: Reports: Hx Migraine Renal/ Medical History: Denies: Hx Peritoneal Dialysis Psychiatric Medical History: Reports: Hx Depression Past Surgical History: Reports: Hx Cholecystectomy, Hx Tonsillectomy, Hx Tubal Ligation - Immunizations Hx Diphtheria, Pertussis, Tetanus Vaccination: Yes Physical Exam - Vital signs Vitals: Temp Pulse Resp BP Pulse Ox 98.2 F 97 20 137/98 H 98 06/13/18 22:34 06/13/18 22:34 06/13/18 22:34 06/13/18 22:34 06/13/18 22:34 - Extremities General upper extremity: Other - Left upper extremity with erythema surrounding a small scabbed area, tenderness over the area, no induration or fluctuance, normal elbow and shoulder range of motion. Course - Re-evaluation Re-evalutation: Clinical picture most suggestive of initial itchy hives, scratching, and now secondary cellulitis. Due to extended wait times, medicating in triage. - Vital Signs Vital signs: Temp Pulse Resp BP Pulse Ox 98.2 F 97 20 137/98 H 98 06/13/18 22:34 06/13/18 22:34 06/13/18 22:34 06/13/18 22:34 06/13/18 22:34
[2018-06-14] MEDS ORDERED: LIDOCAINE 1% INJ (10 MG/ML) 10 ML MDV INJ ONE (00:07)
[2018-06-14 00:11] LABS: ABSOLUTE BASOPHILS # (AUTO) 0.1 10^3/uL (0.0-0.2); ABSOLUTE EOSINOPHILS # (AUTO) 0.2 10^3/uL (0.0-0.6); ABSOLUTE MONOCYTES (AUTO) 0.9 10^3/uL (0.1-1.4); ABSOLUTE NEUT (AUTO) 5.7 10^3/uL (1.7-8.2); BASOPHILS % (AUTO) 0.8 % (0-2); HEMATOCRIT 40.6 % (36.0-47.0); HEMOGLOBIN 14.4 g/dL (12.0-15.5); LYMPHOCYTES % (AUTO) 36.8 % (13-45); MEAN CORPUSCULAR HEMOGLOBIN 29.6 pg (27.0-33.4); MEAN CORPUSCULAR HGB CONC 35.5 g/dL (32.0-36.0); MEAN CORPUSCULAR VOLUME 83 fl (80-97); MONOCYTES % (AUTO) 8.4 % (3-13); PLATELET COUNT 336 10^3/uL (150-450); RED BLOOD COUNT 4.88 10^6/uL (3.72-5.28); RED CELL DISTRIBUTION WIDTH 13.6 % (11.5-14.0); TOTAL CELLS COUNTED % (AUTO) 100 %; WHITE BLOOD COUNT 10.9 10^3/uL (4.0-10.5)
[2018-06-14 00:22] LABS: ANION GAP 9 (5-19); BLOOD UREA NITROGEN 9 mg/dL (7-20); CALCIUM 9.3 mg/dL (8.4-10.2); CARBON DIOXIDE 29 mmol/L (22-30); CHLORIDE 102 mmol/L (98-107); GLUCOSE 96 mg/dL (75-110); POTASSIUM 3.8 mmol/L (3.6-5.0)
--- NOTE | 2018-06-14 04:13 | ER Document Report ---
ED General - General Chief Complaint: Arm Problem Stated Complaint: LEFT ARM PAIN Time Seen by Provider: 06/13/18 23:51 Notes: Patient is a 27-year-old female presents with complaint of a red area on her left arm. She seen earlier by the nurse practitioner. She was placed on Keflex and Bactrim and told if the redness increased to return to ER. She came back was seen in the triage by the PA. She was ordered labs and placed on antibiotics. Patient said that started with what appeared to be a bug bite. She said she scratched and started to have redness spreading. She says that since she received the Benadryl in triage today that while the redness and swelling has gone down. She denies any fevers. No other complaints at this time. TRAVEL OUTSIDE OF THE [place] IN LAST 30 DAYS: No - Related Data Allergies/Adverse Reactions: azithromycin Allergy (Verified 04/02/18 09:20) metoclopramide [From Reglan] Allergy (Verified 04/02/18 09:20) morphine Allergy (Verified 04/02/18 09:20) Past Medical History - Social History Smoking Status: Never Smoker Frequency of alcohol use: None Drug Abuse: None Family History: Reviewed & Not Pertinent - Past Medical History Cardiac Medical History: Reports: Hx Hypertension Neurological Medical History: Reports: Hx Migraine Renal/ Medical History: Denies: Hx Peritoneal Dialysis Psychiatric Medical History: Reports: Hx Depression Past Surgical History: Reports: Hx Cholecystectomy, Hx Tonsillectomy, Hx Tubal Ligation - Immunizations Hx Diphtheria, Pertussis, Tetanus Vaccination: Yes Review of Systems - Review of Systems Notes: My Normal Review Basic REVIEW OF SYSTEMS: CONSTITUTIONAL : Denies fever, chills, or sweats. Denies recent illness. RESPIRATORY: Denies cough, cold, or chest congestion. Denies shortness of breath, difficulty breathing, or wheezing. MUSCULOSKELETAL: Denies neck or back pain or joint pain or swelling. SKIN: Redness over possible bug bite of left upper arm. ALL OTHER SYSTEMS REVIEWED AND NEGATIVE. Physical Exam - Vital signs Vitals: Temp Pulse Resp BP Pulse Ox 98.2 F 97 20 137/98 H 98 06/13/18 22:34 06/13/18 22:34 06/13/18 22:34 06/13/18 22:34 06/13/18 22:34 - Notes Notes: General Appearance: Well nourished, alert, cooperative, no acute distress, no obvious discomfort. Well appearing. Vitals: reviewed, See vital signs table. Eyes: PERRL, EOMI, Conjuctiva clear Extremities: She has a small area on the left upper arm it looks like a bug bite with some surrounding redness. The redness is only 3-4 cm in circumference. There is no fluctuance to palpation. I did do bedside ultrasound shows no fluid pocket or evidence of abscess. Skin: warm, dry, appropriate color, no rash Neuro: speech clear, oriented x 3, normal affect, responds appropriately to questions. Course - Re-evaluation Re-evalutation: 06/14/18 06:16 The redness is only 3-4 cm in circumference. There is no fluctuance to palpation. I did do bedside ultrasound shows no fluid pocket or evidence of abscess. I did bring LAKISHA Moscoso, to look at his he had seen it a few hours earlier. He says the redness seems to have improved as well. Patient herself says she feels better after receiving the Benadryl. However continue the Bactrim and Keflex as she probably does have some secondary underlying cellulitis from scratching it. I encouraged her to take Benadryl every 6 hours as needed for itching and swelling. I encouraged her return to ER for spreading redness, fevers, or feels unwell. Patient agrees the plan will be discharged home. Dictation of this chart was performed using voice recognition software; therefore, there may be some unintended grammatical errors. - Vital Signs Vital signs: Temp Pulse Resp BP Pulse Ox 98.6 F 81 18 119/86 H 98 06/14/18 04:20 06/14/18 04:20 06/14/18 04:20 06/14/18 04:20 06/14/18 04:20 - Laboratory Result Diagrams: 06/13/18 23:50 06/13/18 23:50 Laboratory results interpreted by me: 06/13/18 23:50 WBC 10.9 H Discharge - Discharge Clinical Impression: Bug bite Qualifiers: Encounter type: initial encounter Qualified Code(s): W57.XXXA - Bitten or stung by nonvenomous insect and other nonvenomous arthropods, initial encounter Cellulitis Qualifiers: Site of cellulitis: extremity Site of cellulitis of extremity: upper extremity Laterality: left Qualified Code(s): L03.114 - Cellulitis of left upper limb Condition: Good Disposition: HOME, SELF-CARE Additional Instructions: I suspect you have a bug bite that has a secondary skin infection due to scratching. Please take the antibiotics that you were prescribed at your earlier visit. Please take Benadryl 50 mg every [address]ching[address] drive when taking Benadryl. Please return to ER immediately if you have fevers, spreading redness, increasing swelling, or if you feel that is worsening in any way. Forms: Return to Work
[2018-06-14 04:22] VITALS: BP 119/86
== END 2018-06-14 04:25 | disposition home or self-care (01) ==
LOC: ER 22:10
DX: L03.114 Cellulitis of left upper limb (principal); M79.602 Pain in left arm; W57.XXXA Bitten or stung by nonvenomous insect and other nonvenomous arthropods, initial encounter; I10 Essential (primary) hypertension
CPT/HCPCS: 99284; 96372; 36415; 84703; 85025; 80048; J0696

== ENCOUNTER 2018-06-30 23:20 | Emergency (ER) | payer MEDICAID ==
--- NOTE | 2018-07-01 00:05 | EKG REPORT ---
SEVERITY:- OTHERWISE NORMAL ECG - SINUS TACHYCARDIA : Confirmed by: Kenyatta Edmonds 01-Jul-2018 00:04:53
[2018-07-01] MEDS ORDERED: DIAZEPAM 5 MG TABLET PO ONE (00:28)
[2018-07-01] MEDS ORDERED: BUTALB/ACETAMINOPHEN/CAFFEINE 1 TAB EACH PO ONE (01:51)
--- NOTE | 2018-07-01 01:57 | ER Document Report ---
ED General - General Chief Complaint: Anxiety Stated Complaint: ANXIETY Time Seen by Provider: 07/01/18 00:28 Primary Care Provider: ITZ FONTENOT MD [Primary Care Provider] - Follow up as needed Notes: Patient is a 28-year-old female with no chronic medical problems presents complaining of frequent episodes of panic, generalized anxiety, increasing depression and frequent headaches. She is here mainly due to a panic attack which she could not get under control at home earlier today. Patient states that after eating she began shaking, hyperventilating, felt extremely anxious. notes that she appeared to be having an acute panic reaction. Patient was unable to get her symptoms regulated prompting them to come to the emergency department. She notes that she is had significant relief since receiving oral diazepam. States she has had similar panic attacks many times in the past although not usually this degree of severity. She has scheduled follow-up with her primary care doctor within the next several days. She denies any suicidal or homicidal ideation. In regards to her headache she does report a right- sided, throbbing, aching headache worsened by light and sound. States that she frequently gets similar headaches often when she gets stressed or is anxious. Has focal weakness, numbness or confusion. No fever or constitutional symptoms. TRAVEL OUTSIDE OF THE [place] IN LAST 30 DAYS: No - Related Data Allergies/Adverse Reactions: azithromycin Allergy (Verified 04/02/18 09:20) metoclopramide [From Reglan] Allergy (Verified 04/02/18 09:20) morphine Allergy (Verified 04/02/18 09:20) Past Medical History - General Information source: Patient - Social History Smoking Status: Never Smoker Frequency of alcohol use: None Drug Abuse: None Lives with: Spouse/Significant other Family History: Reviewed & Not Pertinent - Past Medical History Cardiac Medical History: Reports: Hx Hypertension Neurological Medical History: Reports: Hx Migraine Renal/ Medical History: Denies: Hx Peritoneal Dialysis Psychiatric Medical History: Reports: Hx Depression Past Surgical History: Reports: Hx Cholecystectomy, Hx Tonsillectomy, Hx Tubal Ligation - Immunizations Hx Diphtheria, Pertussis, Tetanus Vaccination: Yes Review of Systems - Review of Systems Notes: Constitutional: Negative for fever. HENT: Negative for sore throat. Eyes: Negative for visual changes. Cardiovascular: Negative for chest pain. Respiratory: Negative for shortness of breath. Gastrointestinal: Negative for abdominal pain, vomiting or diarrhea. Genitourinary: Negative for dysuria. Musculoskeletal: Negative for back pain. Skin: Negative for rash. Neurological: Positive for headaches 10 point ROS negative except as marked above and in HPI. Physical Exam - Vital signs Vitals: Temp Pulse Resp BP Pulse Ox 97.8 F 148 H 28 H 173/91 H 100 06/30/18 23:31 06/30/18 23:31 06/30/18 23:31 06/30/18 23:31 06/30/18 23:31 Interpretation: Hypertensive, Tachycardic Notes: PHYSICAL EXAMINATION: GENERAL: Well-appearing, well-nourished and in no acute distress. HEAD: Atraumatic, normocephalic. EYES: Pupils equal round and reactive to light, extraocular movements intact, sclera anicteric, conjunctiva are normal. ENT: nares patent, oropharynx clear without exudates. Moist mucous membranes. NECK: Normal range of motion, supple without lymphadenopathy LUNGS: Breath sounds clear to auscultation bilaterally and equal. No wheezes rales or rhonchi. HEART: Regular rate and rhythm without murmurs ABDOMEN: Soft, morbidly obese abdomen, nontender, normoactive bowel sounds. No guarding, no rebound. No masses appreciated. EXTREMITIES: Normal range of motion, no pitting or edema. No cyanosis. NEUROLOGICAL: Face symmetric. Tongue protrudes midline. Extraocular motions intact. Pupils are 2 mm and equally reactive. Normal speech, normal gait. 5 out of 5 strength in both the distal and proximal upper and lower extremities bilaterally. Sensation is grossly intact throughout. Finger to nose testing normal. Pronator drift normal. PSYCH: Moderately anxious SKIN: Warm, Dry, normal turgor, no rashes or lesions noted. Course - Re-evaluation Re-evalutation: 07/01/18 02:04 Patient presents with history most consistent with an acute panic attack. The patient admits that these are symptoms identical to prior occasions of panic. Symptoms did resolve after receiving medical therapy here in the emergency department. Vitals otherwise within normal limits at the time of my assessment although the patient was initially quite tachycardic. I do not suspect an acute pulmonary embolus, ACS, pneumothorax, or any other acute left threatening pathology based on history and exam. I do not believe any labs or imaging are indicated at this time. Patient does note a long-standing history of daily panic attacks, chronic generalized anxiety and progressive depression. We have initiated fluoxetine and hydroxyzine here in the emergency department and she has follow-ups scheduled with her primary care physician in the near future. Patient also reports that she currently has a headache, typical for her daily headaches. She has received a dose of Fioricet. At this time will discharge with return precautions and follow-up recommendations. Verbal discharge instructions given a the bedside and opportunity for questions given. Medication warnings reviewed. Patient is in agreement with this plan and has verbalized understanding of return precautions and the need for primary care follow-up in the next 24-72 hours. - Vital Signs Vital signs: Temp Pulse Resp BP Pulse Ox 97.8 F 148 H 28 H 173/91 H 100 06/30/18 23:31 06/30/18 23:31 06/30/18 23:31 06/30/18 23:31 06/30/18 23:31 - EKG Interpretation by Me Additional EKG results interpreted by me: 07/01/18 02:09 Sinus tachycardia, rate 135. No ST elevations or depressions. QTC 408. Discharge - Discharge Clinical Impression: Anxiety, Panic attack, Frequent headaches Depression Qualifiers: Depression Type: unspecified Qualified Code(s): F32.9 - Major depressive disorder, single episode, unspecified Condition: Good Disposition: HOME, SELF-CARE Additional Instructions: Please return if you have thoughts of wanting to hurt yourself, hurt others, or have any other symptoms that are concerning to you. Please take the fluoxetine as prescribed. Use the hydroxyzine as needed for panic reactions. Never abruptly stop fluoxetine. You have been seen in the Emergency Department (ED) for a headache. Please use Tylenol (acetaminophen) or Motrin (ibuprofen) as needed for symptoms, but only as written on the box. As we have discussed, please follow up with your primary care doctor as soon as possible regarding today's ED visit and your headache symptoms. Call your doctor or return to the ED if you have a worsening headache, sudden and severe headache, confusion, slurred speech, facial droop, weakness or numbness in any arm or leg, extreme fatigue, or other symptoms that concern you. Prescriptions: Fluoxetine HCl 20 mg PO DAILY #30 tablet Hydroxyzine HCl [Atarax 50 mg Tablet] 50 mg PO BID PRN #30 tablet PRN Reason: Referrals: ITZ FONTENOT MD [Primary Care Provider] - Follow up tomorrow
[2018-07-01 08:00] VITALS: BP 140/100
== END 2018-07-01 02:36 | disposition home or self-care (01) ==
LOC: ER 23:20
DX: F41.0 Panic disorder [episodic paroxysmal anxiety] (principal); F41.1 Generalized anxiety disorder; F32.9 Major depressive disorder, single episode, unspecified; R51 Headache; R00.0 Tachycardia, unspecified; I10 Essential (primary) hypertension; Z88.1 Allergy status to other antibiotic agents; Z88.8 Allergy status to other drugs, medicaments and biological substances; Z88.5 Allergy status to narcotic agent
CPT/HCPCS: 93005; 99283; 93010; J3490 ×2